=== PATIENT | male | born 1945 | race Caucasian/White ===

== ENCOUNTER → 2016-11-13 | Outpatient (REF) | payer MEDICARE, MEDICAID ==
[~2016-11-13] MED LIST: /INSU7030; /INSU7030 SC; /MOM400 PO; /WARF25TA PO; ACET65TA OR; ACTO45TA OR; ASPI81TA83; ASPI81TA83 OR; COLA100C2; COLA100C2 OR; CORE25TA PO; FLEEENE4 PR; FLEET; FOLI1TAB OR; GEMF600T; GEMF600T OR; GLUC1000; GLUC1000 OR; INSULANT SC; INSULIN 70/30 SC; LEVO750T PO; LISI10TA4; LISI10TA4 OR; LORTTAB5 PO; MAALSUS OR; MAG400TA PO; MIDO25TA PO; MILKSUS OR; MIRA3350 PO; NICO21DI4 TD; NICO21PAT TOP; NOVO70VL SC; NYAM10003 TOP; SENN8.6T5 OR; SIMV20TA2; SIMV20TA2 OR; SYNT50TA PO; TAMS0.4C PO; TYLE325T5 PO; VITA100T OR
== END ==
LOC: SKLAB5 08:38
PROVIDERS: ATTEND Family Medicine
DX: E11.9 Type 2 diabetes mellitus without complications (principal)

== ENCOUNTER → 2017-01-08 | Outpatient (REF) | payer MEDICARE, MEDICAID | LOC: SKLAB5 07:09 | PROVIDERS: ATTEND Family Medicine | DX: E78.5 Hyperlipidemia, unspecified (principal) ==

== ENCOUNTER → 2017-01-29 | Outpatient (REF) | payer MEDICARE, MEDICAID ==
[2017-01-29 13:23] LABS: MEAN CORPUSCULAR HEMOGLOBIN 26.7 pg (27.0-33.0); MEAN CORPUSCULAR HGB CONC 31.4 g/dl (32.0-36.5); MEAN CORPUSCULAR VOLUME 85.1 fl (80.0-96.0); PLATELET COUNT, AUTOMATED 316 k/mm3 (150-450); RED CELL DISTRIBUTION WIDTH 16.2 % (11.5-14.5); WHITE BLOOD COUNT 16.1 K/mm3 (4.0-10.0)
[2017-01-29 13:30] LABS: ALBUMIN 2.5 GM/DL (3.2-5.2); ALBUMIN/GLOBULIN RATIO 0.58 (1.00-1.93); ALKALINE PHOSPHATASE 89 U/L (45-117); ALT/SGPT 11 U/L (12-78); ANION GAP 6 MEQ/L (8-16); AST/SGOT 12 U/L (15-37); BILIRUBIN,TOTAL 0.5 MG/DL (0.2-1.0); BLOOD UREA NITROGEN 24 MG/DL (7-18); CALCIUM LEVEL 8.5 MG/DL (8.8-10.2); CARBON DIOXIDE LEVEL 36 MEQ/L (21-32); CHLORIDE LEVEL 96 MEQ/L (98-107); CREATININE FOR GFR 1.22 MG/DL (0.70-1.30); GLOMERULAR FILTRATION RATE > 60.0 (>42); GLUCOSE, FASTING 235 MG/DL (83-110); POTASSIUM SERUM 3.9 MEQ/L (3.5-5.1); SODIUM LEVEL 138 MEQ/L (136-145); TOTAL PROTEIN 6.8 GM/DL (6.4-8.2)
[2017-01-29 14:32] LABS: ANISOCYTOSIS 1+
--- NOTE | 2017-01-30 15:20 | REP ---
Clinical: Febrile and chest pain. Comparison: 04/12/2014. Findings: Bilateral lower lobe infiltrates and pleural effusions (right greater than left). Stable mild cardiomegaly. No pneumothorax. Skeletal structures intact. Impression: Bibasilar infiltrates and pleural effusions (right greater than left). Differential diagnosis includes multifocal pneumonia and pulmonary vascular congestion. Signed by Liborio Bustillo MD 01/30/2017 03:12 P
== END ==
LOC: SKLAB5 12:08
PROVIDERS: ATTEND Family Medicine
DX: R50.9 Fever, unspecified (principal); R11.2 Nausea with vomiting, unspecified; J90 Pleural effusion, not elsewhere classified; J98.4 Other disorders of lung

== ENCOUNTER → 2017-01-30 | Outpatient (REF) | payer MEDICARE, MEDICAID ==
[2017-01-30 08:25] LABS: BASO % 0.3 % (0.0-1.0); EOS # 0.2 K/mm3 (0.0-0.50); EOS % 1.4 % (0.0-3.0); LARGE UNSTAINED CELL # 0.2 K/mm3 (0.0-0.4); LARGE UNSTAINED CELL % 1.3 % (0.0-4.0); LYMPH # 0.8 K/mm3 (1.5-4.5); LYMPH % 3.9 % (24.0-44.0); MEAN CORPUSCULAR HEMOGLOBIN 26.4 pg (27.0-33.0); MEAN CORPUSCULAR HGB CONC 30.9 g/dl (32.0-36.5); MEAN CORPUSCULAR VOLUME 85.3 fl (80.0-96.0); MONO # 0.8 K/mm3 (0.0-0.8); MONO % 5.7 % (0.0-5.0); NEUTROPHILS # 12.7 K/mm3 (1.8-7.7); NEUTROPHILS % 87.3 % (36.0-66.0); PLATELET COUNT, AUTOMATED 323 k/mm3 (150-450); RED CELL DISTRIBUTION WIDTH 16.2 % (11.5-14.5); WHITE BLOOD COUNT 14.5 K/mm3 (4.0-10.0)
== END ==
LOC: SKLAB5 00:15
PROVIDERS: ATTEND Family Medicine
DX: R50.9 Fever, unspecified (principal)

== ENCOUNTER → 2017-02-02 | Outpatient (REF) | payer MEDICARE, MEDICAID ==
[2017-02-02 08:13] LABS: ANION GAP 8 MEQ/L (8-16); BLOOD UREA NITROGEN 15 MG/DL (7-18); CALCIUM LEVEL 8.3 MG/DL (8.8-10.2); CARBON DIOXIDE LEVEL 32 MEQ/L (21-32); CHLORIDE LEVEL 99 MEQ/L (98-107); CREATININE FOR GFR 1.05 MG/DL (0.70-1.30); GLOMERULAR FILTRATION RATE > 60.0 (>42); GLUCOSE, FASTING 172 MG/DL (83-110); POTASSIUM SERUM 3.8 MEQ/L (3.5-5.1); SODIUM LEVEL 139 MEQ/L (136-145)
[2017-02-02 09:01] LABS: BASO # 0.1 K/mm3 (0.0-0.2); BASO % 0.8 % (0.0-1.0); EOS # 0.3 K/mm3 (0.0-0.50); EOS % 3.2 % (0.0-3.0); LARGE UNSTAINED CELL # 0.2 K/mm3 (0.0-0.4); LARGE UNSTAINED CELL % 2.4 % (0.0-4.0); LYMPH # 0.5 K/mm3 (1.5-4.5); LYMPH % 5.5 % (24.0-44.0); MEAN CORPUSCULAR HEMOGLOBIN 26.7 pg (27.0-33.0); MEAN CORPUSCULAR HGB CONC 31.8 g/dl (32.0-36.5); MONO # 0.6 K/mm3 (0.0-0.8); MONO % 7.5 % (0.0-5.0); NEUTROPHILS # 6.9 K/mm3 (1.8-7.7); NEUTROPHILS % 80.6 % (36.0-66.0); PLATELET COUNT, AUTOMATED 346 k/mm3 (150-450); RED CELL DISTRIBUTION WIDTH 16.2 % (11.5-14.5); WHITE BLOOD COUNT 8.5 K/mm3 (4.0-10.0)
== END ==
LOC: SKLAB5 06:42
PROVIDERS: ATTEND Family Medicine
DX: I50.9 Heart failure, unspecified (principal)

== ENCOUNTER → 2017-02-10 | Outpatient (REF) | payer MEDICARE, MEDICAID ==
[2017-02-10 08:47] LABS: ALBUMIN 2.6 GM/DL (3.2-5.2); ALKALINE PHOSPHATASE 91 U/L (45-117); ALT/SGPT 14 U/L (12-78); ANION GAP 8 MEQ/L (8-16); AST/SGOT 13 U/L (15-37); BILIRUBIN,TOTAL 0.3 MG/DL (0.2-1.0); BLOOD UREA NITROGEN 14 MG/DL (7-18); CALCIUM LEVEL 8.2 MG/DL (8.8-10.2); CARBON DIOXIDE LEVEL 32 MEQ/L (21-32); CHLORIDE LEVEL 97 MEQ/L (98-107); CREATININE FOR GFR 1.06 MG/DL (0.70-1.30); GLOMERULAR FILTRATION RATE > 60.0 (>42); GLUCOSE, FASTING 129 MG/DL (83-110); POTASSIUM SERUM 3.8 MEQ/L (3.5-5.1); SODIUM LEVEL 137 MEQ/L (136-145); TOTAL PROTEIN 6.9 GM/DL (6.4-8.2)
[2017-02-10 08:53] LABS: VITAMIN B12 LEVEL 1075 PG/ML (247-911)
== END ==
LOC: SKLAB5 09:07
PROVIDERS: ATTEND Family Medicine
DX: E11.9 Type 2 diabetes mellitus without complications (principal); E03.9 Hypothyroidism, unspecified; D51.9 Vitamin B12 deficiency anemia, unspecified

== ENCOUNTER → 2017-05-14 | Outpatient (REF) | payer MEDICARE, MEDICAID | LOC: SKLAB5 08:17 | PROVIDERS: ATTEND Family Medicine | DX: E11.9 Type 2 diabetes mellitus without complications (principal) ==

== ENCOUNTER → 2017-07-16 | Outpatient (REF) | payer MEDICARE, MEDICAID ==
[2017-07-16 09:28] LABS: ALBUMIN 2.7 GM/DL (3.2-5.2); ALBUMIN/GLOBULIN RATIO 0.56 (1.00-1.93); ALKALINE PHOSPHATASE 90 U/L (45-117); ALT/SGPT 13 U/L (12-78); ANION GAP 9 MEQ/L (8-16); AST/SGOT 9 U/L (15-37); BILIRUBIN,TOTAL 0.3 MG/DL (0.2-1.0); BLOOD UREA NITROGEN 16 MG/DL (7-18); CALCIUM LEVEL 8.5 MG/DL (8.8-10.2); CARBON DIOXIDE LEVEL 31 MEQ/L (21-32); CHLORIDE LEVEL 102 MEQ/L (98-107); CHOLESTEROL LEVEL 132 MG/DL (<200); CREATININE FOR GFR 0.81 MG/DL (0.70-1.30); GLOMERULAR FILTRATION RATE > 60.0 (>42); GLUCOSE, FASTING 96 MG/DL (83-110); POTASSIUM SERUM 3.6 MEQ/L (3.5-5.1); SODIUM LEVEL 142 MEQ/L (136-145); TOTAL PROTEIN 7.5 GM/DL (6.4-8.2); TRIGLYCERIDES LEVEL 69 MG/DL (<150)
[2017-07-16 09:39] LABS: VITAMIN B12 LEVEL 634 PG/ML (247-911)
== END ==
LOC: SKLAB5 07:28
PROVIDERS: ATTEND Family Medicine
DX: I50.9 Heart failure, unspecified (principal); E03.9 Hypothyroidism, unspecified; E78.5 Hyperlipidemia, unspecified

== ENCOUNTER → 2017-08-13 | Outpatient (REF) | payer MEDICARE, MEDICAID | LOC: SKLAB5 08:41 | PROVIDERS: ATTEND Family Medicine | DX: E11.9 Type 2 diabetes mellitus without complications (principal) ==

== ENCOUNTER → 2017-09-28 | Outpatient (REF) | payer MEDICARE, MEDICAID ==
--- NOTE | 2017-09-28 10:37 | REP ---
MANDIBLE SERIES: Three views of the mandible are performed. There is no evidence of acute fracture or dislocation. There is no evidence of osseous destruction. IMPRESSION: No fracture or bone lesion. Signed by Maurice Blum MD 09/28/2017 11:00 A
== END ==
LOC: SKLAB5 07:46
PROVIDERS: ATTEND Family Medicine
DX: K02.9 Dental caries, unspecified (principal)

== ENCOUNTER → 2017-11-12 | Outpatient (REF) | payer MEDICARE, MEDICAID ==
[2017-11-12 10:49] LABS: ESTIMATED AVERAGE GLUCOSE 166 MG/DL (60-110); HEMOGLOBIN A1c 7.4 %
== END ==
LOC: SKLAB5 07:46
DX: E11.9 Type 2 diabetes mellitus without complications (principal)
CPT/HCPCS: 83036

== ENCOUNTER → 2018-01-07 | Outpatient (REF) | payer MEDICARE, MEDICAID ==
[2018-01-07 08:34] LABS: ALBUMIN 2.9 GM/DL (3.2-5.2); ALBUMIN/GLOBULIN RATIO 0.73 (1.00-1.93); ALKALINE PHOSPHATASE 92 U/L (45-117); ALT/SGPT 10 U/L (12-78); ANION GAP 5 MEQ/L (8-16); AST/SGOT 11 U/L (7-37); BILIRUBIN,TOTAL 0.3 MG/DL (0.2-1.0); BLOOD UREA NITROGEN 20 MG/DL (7-18); CALCIUM LEVEL 8.4 MG/DL (8.8-10.2); CARBON DIOXIDE LEVEL 34 MEQ/L (21-32); CHLORIDE LEVEL 100 MEQ/L (98-107); CHOLESTEROL LEVEL 129 MG/DL (<200); CHOLESTEROL RISK RATIO 2.866 (<5); CREATININE FOR GFR 1.02 MG/DL (0.70-1.30); GLOMERULAR FILTRATION RATE > 60.0 (>42); GLUCOSE, FASTING 107 MG/DL (70-100); HDL CHOLESTEROL 45 MG/DL (>40); LDL CHOLESTEROL 68.4 MG/DL (<100); NON-HDL-C 84 MG/DL; POTASSIUM SERUM 4.4 MEQ/L (3.5-5.1); SODIUM LEVEL 139 MEQ/L (136-145); TOTAL PROTEIN 6.9 GM/DL (6.4-8.2); TRIGLYCERIDES LEVEL 78 MG/DL (<150)
[2018-01-07 09:46] LABS: VITAMIN B12 LEVEL 414 PG/ML (247-911)
== END ==
LOC: SKLAB5 07:21
DX: I10 Essential (primary) hypertension (principal); E03.9 Hypothyroidism, unspecified; E78.5 Hyperlipidemia, unspecified
CPT/HCPCS: 84443

== ENCOUNTER → 2018-02-11 | Outpatient (REF) | payer MEDICARE, MEDICAID ==
[2018-02-11 10:51] LABS: ESTIMATED AVERAGE GLUCOSE 157 MG/DL (60-110); HEMOGLOBIN A1c 7.1 %
== END ==
LOC: SKLAB5 07:26
DX: E11.9 Type 2 diabetes mellitus without complications (principal)
CPT/HCPCS: 83036

== ENCOUNTER → 2018-05-13 | Outpatient (REF) | payer MEDICARE, MEDICAID ==
[2018-05-13 09:41] LABS: ESTIMATED AVERAGE GLUCOSE 169 MG/DL (60-110); HEMOGLOBIN A1c 7.5 %
== END ==
LOC: SKLAB5 07:17
DX: E11.9 Type 2 diabetes mellitus without complications (principal)
CPT/HCPCS: 83036

== ENCOUNTER → 2018-07-15 | Outpatient (REF) | payer MEDICARE, MEDICAID ==
[2018-07-15 09:37] LABS: ALBUMIN 2.9 GM/DL (3.2-5.2); ALBUMIN/GLOBULIN RATIO 0.64 (1.00-1.93); ALKALINE PHOSPHATASE 120 U/L (45-117); ALT/SGPT 13 U/L (12-78); ANION GAP 10 MEQ/L (8-16); AST/SGOT 12 U/L (7-37); BILIRUBIN,TOTAL 0.3 MG/DL (0.2-1.0); BLOOD UREA NITROGEN 19 MG/DL (7-18); CALCIUM LEVEL 8.2 MG/DL (8.8-10.2); CARBON DIOXIDE LEVEL 30 MEQ/L (21-32); CHLORIDE LEVEL 100 MEQ/L (98-107); CHOLESTEROL LEVEL 146 MG/DL (<200); CHOLESTEROL RISK RATIO 2.862 (<5); CREATININE FOR GFR 0.93 MG/DL (0.70-1.30); GLOMERULAR FILTRATION RATE > 60.0 (>42); GLUCOSE, FASTING 124 MG/DL (70-100); HDL CHOLESTEROL 51 MG/DL (>40); NON-HDL-C 95 MG/DL; POTASSIUM SERUM 4.1 MEQ/L (3.5-5.1); SODIUM LEVEL 140 MEQ/L (136-145); TOTAL PROTEIN 7.4 GM/DL (6.4-8.2); TRIGLYCERIDES LEVEL 110 MG/DL (<150)
[2018-07-15 13:02] LABS: VITAMIN B12 LEVEL 547 PG/ML (247-911)
== END ==
LOC: SKLAB5 09:37
DX: I50.9 Heart failure, unspecified (principal); E03.9 Hypothyroidism, unspecified; I11.0 Hypertensive heart disease with heart failure
CPT/HCPCS: 84443

== ENCOUNTER → 2018-08-12 | Outpatient (REF) | payer MEDICARE, MEDICAID ==
[2018-08-12 10:21] LABS: ESTIMATED AVERAGE GLUCOSE 180 MG/DL (60-110); HEMOGLOBIN A1c 7.9 %
== END ==
LOC: SKLAB5 08:10
DX: E11.9 Type 2 diabetes mellitus without complications (principal)
CPT/HCPCS: 83036

== ENCOUNTER → 2018-11-11 | Outpatient (REF) | payer MEDICARE, MEDICAID ==
[2018-11-11 08:58] LABS: HEMOGLOBIN A1c 9.3 %
== END ==
LOC: SKLAB5 07:59
PROVIDERS: ATTEND Family Medicine
DX: E11.9 Type 2 diabetes mellitus without complications (principal)

== ENCOUNTER → 2018-12-03 | Outpatient (REF) | payer MEDICARE, MEDICAID ==
[2018-12-03 12:12] LABS: HEMATOCRIT 45.9 % (42.0-52.0); HEMOGLOBIN 14.4 g/dl (13.5-17.5); MEAN CORPUSCULAR HGB CONC 31.4 g/dl (32.0-36.5); PLATELET COUNT, AUTOMATED 325 10^3/uL (150-450); RED BLOOD COUNT 5.53 10^6/uL (4.30-6.10); WHITE BLOOD COUNT 8.7 10^3/uL (4.0-10.0)
[2018-12-03 12:36] LABS: ALBUMIN 2.7 GM/DL (3.2-5.2); ALT/SGPT 10 U/L (12-78); BILIRUBIN,TOTAL 0.3 MG/DL (0.2-1.0); BLOOD UREA NITROGEN 24 MG/DL (7-18); CALCIUM LEVEL 8.5 MG/DL (8.8-10.2); CARBON DIOXIDE LEVEL 33 MEQ/L (21-32); CHLORIDE LEVEL 96 MEQ/L (98-107); CREATININE FOR GFR 1.08 MG/DL (0.70-1.30); GLOMERULAR FILTRATION RATE > 60.0 (>42); GLUCOSE, FASTING 384 MG/DL (70-100); POTASSIUM SERUM 4.6 MEQ/L (3.5-5.1); SODIUM LEVEL 136 MEQ/L (136-145); TOTAL PROTEIN 6.7 GM/DL (6.4-8.2)
--- NOTE | 2018-12-03 15:12 | REP ---
Chest one-view HISTORY: Bronchitis Comparison: 01/29/2017 Linear densities are present in the right lower lobe consistent with atelectasis or scar. The left lung is clear. There is blunting of the costophrenic angles due to pleural thickening or small pleural effusions. The cardiac silhouette is enlarged. The pulmonary vasculature is normal in appearance. A cardiac pacemaker is present. Impression: 1. Right lower lobe atelectasis or scar. 2. There is blunting of the costophrenic angles due to pleural thickening or small pleural effusions. 3. Cardiomegaly. Electronically Signed by Gelacio Bar MD 12/03/2018 12:09 P
== END ==
LOC: SKLAB5 07:54
PROVIDERS: ATTEND Family Medicine
DX: E11.9 Type 2 diabetes mellitus without complications (principal); J20.9 Acute bronchitis, unspecified; R05 Cough; I95.9 Hypotension, unspecified; R09.81 Nasal congestion; I51.7 Cardiomegaly

== ENCOUNTER → 2019-01-13 | Outpatient (REF) | payer MEDICARE, MEDICAID ==
[2019-01-13 10:50] LABS: ALBUMIN 2.7 GM/DL (3.2-5.2); ALT/SGPT 10 U/L (12-78); BILIRUBIN,TOTAL 0.4 MG/DL (0.2-1.0); BLOOD UREA NITROGEN 23 MG/DL (7-18); CALCIUM LEVEL 8.3 MG/DL (8.8-10.2); CARBON DIOXIDE LEVEL 28 MEQ/L (21-32); CHLORIDE LEVEL 102 MEQ/L (98-107); CHOLESTEROL LEVEL 135 MG/DL (<200); CREATININE FOR GFR 1.03 MG/DL (0.70-1.30); GLOMERULAR FILTRATION RATE > 60.0 (>42); GLUCOSE, FASTING 214 MG/DL (70-100); HDL CHOLESTEROL 45 MG/DL (>40); LDL CHOLESTEROL 64 MG/DL (<100); NON-HDL-C 90 MG/DL; POTASSIUM SERUM 4.3 MEQ/L (3.5-5.1); SODIUM LEVEL 140 MEQ/L (136-145); TOTAL PROTEIN 6.8 GM/DL (6.4-8.2); TRIGLYCERIDES LEVEL 131 MG/DL (<150)
[2019-01-13 12:07] LABS: VITAMIN B12 LEVEL 945 PG/ML (247-911)
== END ==
LOC: SKLAB5 07:55
PROVIDERS: ATTEND Family Medicine
DX: E78.5 Hyperlipidemia, unspecified (principal); E03.9 Hypothyroidism, unspecified

== ENCOUNTER → 2019-02-10 | Outpatient (REF) | payer MEDICARE, MEDICAID ==
[~2019-02-10] MED LIST changes: -/INSU7030; -/INSU7030 SC; -/MOM400 PO; -/WARF25TA PO; +COUM1TAB18 PO; -MIDO25TA PO; +MILK10SU PO; +NICO21DI3 TOP; -NICO21PAT TOP; +NOVO1INJ4; +NOVO1INJ4 SC; +[UNRECOGNIZED DRUG - CODE] PO
[2019-02-10 09:26] LABS: HEMOGLOBIN A1c 8.8 %
== END ==
LOC: SKLAB5 07:57
PROVIDERS: ATTEND Family Medicine
DX: E11.9 Type 2 diabetes mellitus without complications (principal)

== ENCOUNTER → 2019-05-13 | Outpatient (REF) | payer MEDICARE, MEDICAID ==
[2019-05-13 08:21] LABS: HEMOGLOBIN A1c 8.9 %
== END ==
LOC: SKLAB5 12:02
PROVIDERS: ATTEND Family Medicine
DX: E11.9 Type 2 diabetes mellitus without complications (principal)

== ENCOUNTER → 2019-07-14 | Outpatient (REF) | payer MEDICARE, MEDICAID ==
[~2019-07-14] MED LIST changes: +ALB2.5NEB INH; +APAP325T4 EN; +ARTIDRO OU; +ASPI81CH33 PO; +BAYE325T12 EN; +CARV6.25 EN; +CEPA1LOZ2 PO; +CLAR10CA3 EN; +CLAR5TAB11 PO; +DULC10SU2 PR; +ENEMENE6 PR; +FEVE650S3 PR; +FLOM0.4C39 EN; +GLUC1KIT IM; +HYOS1TAB PO; +INSUDET SC; +INSUH10VL SC; +LASI20TA3 PO; +LASI40TA9 EN; +LEVS0.123 PO; +METF-839 EN; +MOM30SS2 EN; +MUCI600T31 PO; +MULTCAP EN; +NOVOINJ SC; +SENN1TAB41 PO; +SENN1TAB8 PO; +SENN8.8S5 EN; +SIMV40TA20 EN; +SYNT125T EN
[2019-07-14 09:10] LABS: ALBUMIN 2.7 GM/DL (3.2-5.2); ALT/SGPT 12 U/L (12-78); BILIRUBIN,TOTAL 0.3 MG/DL (0.2-1.0); BLOOD UREA NITROGEN 23 MG/DL (7-18); CALCIUM LEVEL 8.6 MG/DL (8.8-10.2); CARBON DIOXIDE LEVEL 31 MEQ/L (21-32); CHLORIDE LEVEL 103 MEQ/L (98-107); CHOLESTEROL LEVEL 120 MG/DL (<200); CHOLESTEROL RISK RATIO 2.608 (<5); CREATININE FOR GFR 0.86 MG/DL (0.70-1.30); GLOMERULAR FILTRATION RATE > 60.0 (>42); GLUCOSE, FASTING 112 MG/DL (70-100); HDL CHOLESTEROL 46 MG/DL (>40); LDL CHOLESTEROL 50 MG/DL (<100); NON-HDL-C 74 MG/DL; POTASSIUM SERUM 4.2 MEQ/L (3.5-5.1); SODIUM LEVEL 140 MEQ/L (136-145); TOTAL PROTEIN 6.9 GM/DL (6.4-8.2); TRIGLYCERIDES LEVEL 119 MG/DL (<150); VITAMIN B12 LEVEL 1093 PG/ML (247-911)
== END ==
LOC: SKLAB5 10:21
PROVIDERS: ATTEND Family Medicine
DX: E03.9 Hypothyroidism, unspecified (principal); E78.5 Hyperlipidemia, unspecified

== ENCOUNTER → 2019-08-11 | Outpatient (REF) | payer MEDICARE, MEDICAID ==
[2019-08-11 08:47] LABS: HEMOGLOBIN A1c 7.9 %
== END ==
LOC: SKLAB5 08:21
PROVIDERS: ATTEND Family Medicine
DX: E11.9 Type 2 diabetes mellitus without complications (principal)

== ENCOUNTER 2019-10-08 21:22 | Inpatient (IN) | payer MEDICARE, MEDICAID ==
[~2019-10-08] VITALS: Ht 188 cm; Wt 98.7 kg
[~2019-10-08 21:22] MED LIST changes: -ALB2.5NEB INH; -APAP325T4 EN; -ARTIDRO OU; -ASPI81CH33 PO; -BAYE325T12 EN; -CARV6.25 EN; -CEPA1LOZ2 PO; -CLAR10CA3 EN; -CLAR5TAB11 PO; -DULC10SU2 PR; -ENEMENE6 PR; -FEVE650S3 PR; -FLOM0.4C39 EN; -GLUC1KIT IM; -HYOS1TAB PO; -INSUDET SC; -INSUH10VL SC; -LASI20TA3 PO; -LASI40TA9 EN; -LEVS0.123 PO; -METF-839 EN; -MOM30SS2 EN; -MUCI600T31 PO; -MULTCAP EN; -NOVOINJ SC; -SENN1TAB41 PO; -SENN1TAB8 PO; -SENN8.8S5 EN; -SIMV40TA20 EN; -SYNT125T EN
[2019-10-08] MEDS ORDERED: NS 1,000 ML IV SCH (21:26)
[2019-10-08] MEDS ORDERED: ASPIRIN 81 MG CHEW TABLET PO ONE (21:30)
[2019-10-08] MEDS: IPRATROPIUM 0.5MG/ALBUTEROL 2.5MG INH SOL UD 3ML (DUONEB)(J7620) NEB PRN (21:43)
[2019-10-08 22:17] LABS: BASO # 0.1 10^3/uL (0.0-0.2); BASO % 0.5 % (0.0-1.0); EOS # 0.1 10^3/uL (0.0-0.5); EOS % 0.5 % (0.0-3.0); HEMOGLOBIN 15.8 g/dl (13.5-17.5); LYMPH # 0.5 10^3/uL (1.5-5.0); LYMPH % 4.3 % (24.0-44.0); MEAN CORPUSCULAR HGB CONC 29.3 g/dl (32.0-36.5); MEAN CORPUSCULAR VOLUME 78.6 fl (80.0-96.0); MONO # 0.4 10^3/uL (0.0-0.8); MONO % 3.5 % (0.0-5.0); NEUTROPHILS # 10.9 10^3/uL (1.5-8.5); NEUTROPHILS % 90.9 % (36.0-66.0); PLATELET COUNT, AUTOMATED 401 10^3/uL (150-450); RED BLOOD COUNT 6.87 10^6/uL (4.30-6.10)
[2019-10-08 22:29] LABS: INR 1.15; PROTHROMBIN TIME 14.5 SECONDS (11.8-14.0)
[2019-10-08] MEDS ORDERED: FUROSEMIDE 40 MG/4 ML VIAL (J1940) IV ONE (22:45)
[2019-10-08] MEDS ORDERED: CLAR5TAB11 PO (23:08)
[2019-10-08] MEDS ORDERED: SENN1TAB8 PO (23:08)
[2019-10-08] MEDS ORDERED: LEVS0.123 PO (23:08)
[2019-10-08] MEDS ORDERED: MUCI600T31 PO (23:08)
[2019-10-08] MEDS ORDERED: LASI20TA3 PO (23:08)
[2019-10-08] MEDS ORDERED: ASPI81CH33 PO (23:08)
[2019-10-08 23:26] LABS: BLOOD UREA NITROGEN 25 MG/DL (7-18); CALCIUM LEVEL 8.7 MG/DL (8.8-10.2); CARBON DIOXIDE LEVEL 31 MEQ/L (21-32); CHLORIDE LEVEL 104 MEQ/L (98-107); CK-MB VALUE MASS 1.4 NG/ML (<3.6); CPK CREATINE PHOSPHOKINASE 76 U/L (39-308); CREATININE FOR GFR 0.92 MG/DL (0.70-1.30); GLOMERULAR FILTRATION RATE > 60.0 (>42); GLUCOSE, FASTING 108 MG/DL (70-100); MB/CK RELATIVE INDEX 1.84 (< OR =4); NT-PRO BNP 971 PG/ML (<125); POTASSIUM SERUM 3.8 MEQ/L (3.5-5.1); SODIUM LEVEL 142 MEQ/L (136-145); TROPONIN I < 0.02 NG/ML (< 0.10)
[2019-10-09] VITALS (12 sets, daily range): BP systolic 100–172; BP diastolic 56–85
[2019-10-09] MEDS ORDERED: ACETAMINOPHEN TAB 650MG DOSE (2X325MG) PO PRN (00:15)
[2019-10-09] MEDS ORDERED: IPRATROPIUM 0.5MG/ALBUTEROL 2.5MG INH SOL UD 3ML (DUONEB)(J7620) INH PRN (00:15)
[2019-10-09 00:28] LABS: C REACTIVE PROTEIN QUANTITATIV 3.38 MG/DL (0.00-0.30)
[2019-10-09] MEDS ORDERED: FEVE650S3 PR (00:53)
[2019-10-09] MEDS ORDERED: SENN1TAB41 PO (00:53)
[2019-10-09] MEDS ORDERED: GLUC1KIT IM (00:53)
[2019-10-09] MEDS ORDERED: MIRA3350 PO (00:53)
[2019-10-09] MEDS ORDERED: METF-839 PO (00:53)
[2019-10-09] MEDS ORDERED: FLOM0.4C39 PO (00:53)
[2019-10-09] MEDS ORDERED: HYOS1TAB PO (00:53)
[2019-10-09] MEDS ORDERED: CEPA1LOZ2 PO (00:53)
[2019-10-09] MEDS ORDERED: NOVO70VL SC (00:53)
[2019-10-09] MEDS ORDERED: ENEMENE6 PR (00:53)
[2019-10-09] MEDS ORDERED: CARV6.25 PO (00:53)
[2019-10-09] MEDS ORDERED: SIMV40TA20 PO (00:53)
[2019-10-09] MEDS ORDERED: MOM30SS2 PO (00:53)
[2019-10-09] MEDS ORDERED: SYNT125T PO (00:53)
[2019-10-09] MEDS ORDERED: DULC10SU2 PR (00:53)
[2019-10-09] MEDS ORDERED: MUCI600T31 PO (00:53)
[2019-10-09] MEDS ORDERED: ALB2.5NEB INH (00:53)
[2019-10-09] MEDS ORDERED: APAP325T4 PO (00:53)
[2019-10-09] MEDS ORDERED: ARTIDRO OU (00:53)
[2019-10-09] MEDS ORDERED: CLAR10CA3 PO (00:53)
[2019-10-09] MEDS ORDERED: LASI40TA9 PO (00:53)
[2019-10-09] MEDS ORDERED: BAYE325T12 PO (00:53)
[2019-10-09] MEDS ORDERED: MOM 30ML SUSPENSION UDC PO PRN (01:45)
[2019-10-09] MEDS ORDERED: GLUCOSE 4 GM CHEW TABLET PO PRN (02:00)
[2019-10-09] MEDS ORDERED: CEPACOL LOZENGE PO PRN (02:00)
[2019-10-09] MEDS ORDERED: BISACODYL 10 MG SUPP PR PRN (02:00)
[2019-10-09] MEDS ORDERED: DEXTROSE 50% 50 ML SYRINGE IV PRN (02:00)
[2019-10-09] MEDS ORDERED: GLUCAGON FOR INJ 1 MG VIAL (J1610) SC PRN (02:00)
--- NOTE | 2019-10-09 02:41 | HPEPDOC ---
General Date of Admission Oct 08, 2019 at 23:54 Date of Service: Oct 09, 2019 Attending Physician: EJ ALCANTARA MD Chief Complaint The patient is a 74-year-old male admitted with a reason for visit of Chf Exacerbation; Fever. History of Present Illness 74-year-old male resident at [facility] with extensive past medical history brought in for shortness of breath. He is a poor historian. Per staff reports, he was eating dinner, seemingly choked on food and then vomited. Afterwards, was found to be hypoxic at 87%, brought in on CPAP in the ambulance, however he vomited again on the CPAP, therefore transitioned over to nonrebreather, and ultimately titrated down to nasal cannula. He reports a cough with mild clear phlegm for the past 1 day along with difficulty breathing, which he is not able to further clarify. Denies all other ROS. No recent fevers, chil ls, rashes, chest pain or discomfort, wheezing, nausea/vomiting/abdominal pain, dysuria. In the ER, he was noted to have a temp of 100.5, WBC 12, and initially reportedly wheezing. Was given 1 L normal saline, full dose aspirin, DuoNeb, Lasix 40, and 10 mg Decadron. Official chest x-ray read is pending, however noted to have cardiomegaly and increased pulmonary vasculature markings. He was examined again when settled into his room on the medical floor, and states he feels much better, afebrile without any intervention, but noted to still require 5L NC. Home Medications Scheduled Aspirin (Aspirin) 325 Mg Tablet, 325 MG PO DAILY, (Reported) Carvedilol (Carvedilol) 6.25 Mg Tablet, 6.25 MG PO BID, (Reported) Furosemide (Lasix) 40 Mg Tablet, 40 MG PO BID, (Reported) 0800 AND 1400 Glucagon,Human Recombinant (Glucagon Emergency Kit) 1 Mg Vial, 1 MG IM ASDIRECTED, (Reported) Guaifenesin (Mucinex) 600 Mg Tab.er.12h, 600 MG PO BID, (Reported) Hyoscyamine Sulfate (Hyoscyamine Sulfate) 0.125 Mg Tab.rapdis, 0.125 MG PO Q8H, (Reported) Insulin Aspart Protamine/Aspar (Novolog Mix 70-30 Vial) 100 Unit/1 Ml Vial, 18 UNITS SC BID, (Reported) 0730 AND 1730 Levothyroxine Sodium (Synthroid) 125 Mcg Tablet, 125 MCG PO DAILY, (Reported) 0600 Loratadine (Claritin) 10 Mg Capsule, 10 MG PO DAILY, (Reported) Metformin HCl (Metformin HCl) 500 Mg Tablet, 500 MG PO BID, (Reported) 0800 AND 1600 Polyethylene Glycol 3350 (Miralax) 119 Gm Powder, 17 GRAM PO DAILY for constipation, (Reported) dissolve in water Sennosides/Docusate Sodium (Senna-S Tablet) 1 Each Tablet, 2 TAB PO BID, (Reported) Simvastatin (Simvastatin) 40 Mg Tablet, 40 MG PO QHS, (Reported) Tamsulosin HCl (Flomax) 0.4 Mg Capsule, 0.4 MG PO DAILY, (Reported) Scheduled PRN Acetaminophen (Feverall) 650 Mg Supp.rect, 650 MG OH Q4H PRN for PAIN / FEVER, (Reported) Acetaminophen (Acetaminophen) 325 Mg Tablet, 650 MG PO Q4H PRN for PAIN / FEVER, (Reported) Albuterol Sulfate (Albuterol Sulfate) 2.5 Mg/0.5 Ml Vial.neb, 1 INH INH Q4H PRN for SHORTNESS OF BREATH, (Reported) Benzocaine/Menthol (Cepacol Sore Throat Lozenge) 1 Each Lozenge, 1 NAEEM PO Q2H PRN for COUGH, (Reported) Bisacodyl (Dulcolax) 10 Mg Supp.rect, 10 MG OH DAILY PRN for CONSTIPATION, (Reported) Glycerin/Propylene Glycol (Artificial Tears Drops) 15 Ml Drops, 1 GEETHA OU TID PRN for DRY EYES, (Reported) Magnesium Hydroxide (Milk of Magnesia) 400 Mg/5 Ml Oral.susp, 30 ML PO DAILY PRN for CONSTIPATION, (Reported) Sodium Phosphate,Chase-Dibasic (Enema Ready To Use) 133 Ml Enema, 1 GEOFF OH DAILY PRN for CONSTIPATION, (Reported) Allergies Coded Allergies: No Known Drug Allergies (Verified Allergy, Unknown, 10/08/19) Past Medical History Medical History 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 Calabrese & Dr. Degroot Family History Father had heart disease Social History Resident him keep [facility] Prior smoker, unable to clarify how much when he quit Denies alcohol and illicit substances A-FIB/CHADSVASC A-FIB History Current/History of A-Fib/PAF?: No Current PO Anticoag Therapy: No Review of Systems Other systems Constitutional: Denies fever, chills, night sweats, weight loss HEENT: Denies headache, dysphagia, sore throat, rhinorrhea Skin: Denies any rashes or lesions Pulmonary: Admits dyspnea with minimal clear phlegm, cough, wheezing. No hemoptysis Cardiac: Denies chest pain, palpitations, orthopnea, PND, edema, lightheadedness GI: Denies nausea, vomiting, abdominal pain, diarrhea, constipation, melena, hematochezia : Denies dysuria, retention MSK: Denies new pains or weakness Neurologic: Denies new numbness/tingling Physical Examination Other physical findings General exam: A&O 2, to self and location, thinks it is year 2019, NAD, resting comfortably, speaking full sentences HEENT: NCAT, EOMI, PERRLA, clear oropharynx without exudates, edentulous roof, poor dentition inferiorly, uvula & trachea midline, no postnasal drip, mild cervical adenopathy, no appreciable JVD Cardiac: RRR, normal S1 & S2, PPM left upper chest Respiratory: poor inspiratory effort due to baseline cognition, bibasilar crackles, diminished breath sounds, no wheezing or accessory muscle use or respiratory distress. Mild cyanosis in all limbs distally Abdomen: soft, NT, ND, normoactive bowel sounds Extremity: diminished pulses throughout in UE & LE, slightly better on right side of body, trace LE edema, no calf tenderness or swelling Skin: [place], warm, dry, no visible rash Msk: strength 4/5 RUE & RLE from prior stroke, 5/5 left side, normal tone & development director strength Neuro: mumbled speech-this is reportedly his baseline, decreased sensation all limbs, unable to localize soft and sharp touch in all extremities. Sensation present above the knees. Residual weakness right side of body Vital Signs Vital Signs Date Time Temp Pulse Resp B/P (MAP) Pulse Ox O2 Delivery O2 Flow Rate FiO2 10/08/19 22:02 Non-Rebreather 15.0 10/08/19 21:33 100.5 132 36 168/92 (117) 87 Laboratory Data Labs 24H Laboratory Tests 2 10/08/19 21:29: Bedside Glucose (Misc Panel) 116H 10/08/19 21:44: POC pH (Misc Panel) 7.428, POC Base Excess (Misc Panel) 6.0H, POC Saturated Percent O2 (Misc) 91L, POC pO2 (Misc Panel) 60.0L, POC pCO2 (Misc Panel) 46.2H, POC HCO3 (Misc Panel) 30.5H, POC Total CO2 (Misc Panel) 32.0H 10/08/19 21:49: Immature Granulocyte % (Auto) 0.3, Neutrophils (%) (Auto) 90.9H, Lymphocytes (%) (Auto) 4.3L, Monocytes (%) (Auto) 3.5, Eosinophils (%) (Auto) 0.5, Basophils (%) (Auto) 0.5, Neutrophils # (Auto) 10.9H, Lymphocytes # (Auto) 0.5L, Monocytes # (Auto) 0.4, Eosinophils # (Auto) 0.1, Basophils # (Auto) 0.1, Nucleated Red Blood Cells % (auto) 0.0, Prothrombin Time 14.5H, Prothromb Time International Ratio 1.15 10/08/19 22:01: Lactic Acid Level 1.8 10/08/19 22:48: Anion Gap 7L, Glomerular Filtration Rate > 60.0, Calcium Level 8.7L, Total Cre atine Kinase 76, Creatine Kinase MB 1.4, Creatine Kinase MB Relative Index 1.84, Troponin I < 0.02, C-Reactive Protein, Quantitative 3.38H, UM-Nto-B-Type Natriuretic Peptide 971H 10/09/19 00:48: Bedside Glucose (Misc Panel) 93 10/09/19 00:50: CBC/BMP Laboratory Tests 10/08/19 21:49 10/08/19 22:48 Microbiology Microbiology 10/08/19 Blood Culture, Received Pending 10/08/19 Respiratory Virus Panel (PCR) (EMANUEL) - Final, Complete 10/08/19 Blood Culture, Received Pending Assessment/Plan 74-year-old male, poor historian resident of the [facility], brought in for dyspnea and hypoxia after vomiting from choking at dinner, noted to be in the high-80% O2. Transitioned from CPAP to NRB to nasal cannula. Noted to have temp 100.5 that self-resolved on recheck. Concern for possible aspiration Acute hypoxemia no O2 at baseline, requiring 5L NC aspiration pneumonitis vs pneumonia - desat started after choking on dinner had recent swallow eval recommending mechanical soft diet Afebrile, lactate & resp panel nml, but pt high risk if this is indeed PNA, CURB-65 = 3pts pending procal, blood cxs, atypical PNA, & MRSA screen testing incentive spirometry, Zosyn started. De-escalate pending results aspiration precautions in place Fluid overload from CHF prior echo 2013 nml, unclear if systolic or diastolic new echo ordered elevated BNP ~900, bibasilar crackles, no edema or JVD. Likely not in full decompensated state yet given 40mg Lasix in ER, monitor. Resume home po lasix strict I/O, daily weights, 2L fluid restriction Leukocytosis 12 on admission, s/p 10mg decadron & Duonebs may be reactionary. CRP & Procal ordered clinical picture is questionable for true infection given high risk, will start abx and monitor consider chest CT if no improvement CVA with residual spastic right hemiparesis Continue aspirin statin PVD with hx of ulcers followed by Dr. Degroot monitor cool extremities. No signs of necrosis IDDM2 with diabetic neuropathy Replace home insulin and metformin with ISS inpatient 3rd degree block, s/p DCPM Hypertensive heart disease Continue home Corag Hyperlipidemia Continue home statin BPH Continue home Flomax Vitamin D & B12 deficiency not on meds Hypothyroidism TSH normal 07/2019. Continue Synthroid DVT ppx: Lovenox CODE: per his [facility] records, MOLST states FULL CODE with trial of intubation, NO feeding tube. DISPO: admit to medical floor and d/c back to [facility] when improved. Plan / VTE VTE Prophylaxis Ordered?: Yes GME ATTESTATION GME ATTESTATION My faculty preceptor for this patient encounter was physically present during the encounter and was fully available. All aspects of the patient interview, examination, medical decision making process, and medical care plan development were reviewed and approved by the faculty preceptor. The faculty preceptor is aware and concurs with the plan as stated in the body of this note and will attest to such by his/her cosignature. ISABELA ESTRADA DO Oct 09, 2019 02:40
[2019-10-09] MEDS: IPRATROPIUM 0.5MG/ALBUTEROL 2.5MG INH SOL UD 3ML (DUONEB)(J7620) NEB PRN (04:32)
[2019-10-09] MEDS: IPRATROPIUM 0.5MG/ALBUTEROL 2.5MG INH SOL UD 3ML (DUONEB)(J7620) INH SCH ×4 (04:32→19:40)
[2019-10-09 05:12] LABS: HEMATOCRIT 47.8 % (42.0-52.0); HEMOGLOBIN 14.3 g/dl (13.5-17.5); MEAN CORPUSCULAR HEMOGLOBIN 23.3 pg (27.0-33.0); MEAN CORPUSCULAR HGB CONC 29.9 g/dl (32.0-36.5); PLATELET COUNT, AUTOMATED 366 10^3/uL (150-450); RED BLOOD COUNT 6.13 10^6/uL (4.30-6.10); WHITE BLOOD COUNT 26.8 10^3/uL (4.0-10.0)
[2019-10-09 05:39] LABS: BLOOD UREA NITROGEN 28 MG/DL (7-18); CALCIUM LEVEL 8.6 MG/DL (8.8-10.2); CARBON DIOXIDE LEVEL 32 MEQ/L (21-32); CHLORIDE LEVEL 105 MEQ/L (98-107); CK-MB VALUE MASS < 1.0 NG/ML (<3.6); CPK CREATINE PHOSPHOKINASE 60 U/L (39-308); CREATININE FOR GFR 0.99 MG/DL (0.70-1.30); GLOMERULAR FILTRATION RATE > 60.0 (>42); GLUCOSE, FASTING 127 MG/DL (70-100); MAGNESIUM LEVEL 1.9 MG/DL (1.8-2.4); MB/CK RELATIVE INDEX 1.67 (< OR =4); POTASSIUM SERUM 3.8 MEQ/L (3.5-5.1); SODIUM LEVEL 145 MEQ/L (136-145); TROPONIN I < 0.02 NG/ML (< 0.10)
[2019-10-09] MEDS: HYOSCYAMINE SULFATE 0.125 MG SUBL TABLET PO SCH ×3 (06:17→21:10)
[2019-10-09] MEDS: LEVOTHYROXINE 125MCG TABLET (0.125MG) PO SCH (06:17)
[2019-10-09] MEDS: PIPERACILLIN/TAZOBACTAM SOD 4.5 GM in D5W MINI-BAG PLUS 50 ML IV SCH ×3 (06:22→17:49)
--- NOTE | 2019-10-09 06:29 | REP ---
Clinical: Cough and dyspnea. Comparison: 12/03/2018. Findings: Stable cardiomegaly. Perihilar and lower lobe infiltrates are nonspecific and differential diagnosis includes pulmonary edema as well as multifocal pneumonia. No pneumothorax. Small layering effusion cannot be excluded. Skeletal structures are stable. Impression: Perihilar and lower lobe infiltrates. Differential diagnosis includes pulmonary edema and multifocal pneumonia. Electronically Signed by Liborio Bustillo MD 10/09/2019 06:20 A
[2019-10-09] MEDS: HumaLOG INSULIN (NovoLOG) PER UNIT SC SCH ×4 (07:30→20:42)
--- NOTE | 2019-10-09 07:54 | ECGEPIP ---
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
[2019-10-09] MEDS ORDERED: FUROSEMIDE 40 MG/4 ML VIAL (J1940) IV SCH (09:00)
[2019-10-09] MEDS ORDERED: LEVEMIR (INSULIN DETEMIR) 1 UNITS/0.01ML SC SCH (09:00)
[2019-10-09] MEDS: MIRALAX *UNIT DOSE* 17GM PACKET PO SCH (09:54)
[2019-10-09] MEDS: FUROSEMIDE 40 MG TAB PO SCH ×2 (09:55→17:00)
[2019-10-09] MEDS: guaiFENesin ER 600 MG TAB PO SCH ×2 (09:55→21:10)
[2019-10-09] MEDS: CARVedilol 6.25 MG TAB PO SCH ×2 (09:55→21:11)
[2019-10-09] MEDS: ASPIRIN 325 MG TAB PO SCH (09:55)
[2019-10-09] MEDS: SENOKOT S TAB PO SCH ×2 (09:55→21:11)
[2019-10-09] MEDS: ENOXAPARIN 40 MG/0.4 ML SYRINGE (J1650) SC SCH (09:55)
[2019-10-09] MEDS: TAMSULOSIN 0.4 MG CAP PO SCH (09:55)
[2019-10-09] MEDS: LORATADINE 10 MG TAB PO SCH (09:56)
--- NOTE | 2019-10-09 11:39 | IPNPDOC ---
Text Note Date of Service The patient was seen on 10/09/19. NOTE Subjective: No any acute events overnight. Patient was able to brief w/o diff iculties, currently on room air. Patient denies fever, chills, nausea, vomiting, shortness of breath, diarrhea or dysuria Objective: NAD HEENT: NCAT, EOMI, PERRLA Cardiac: RRR, S1 & S2, PPM left upper chest Respiratory: diminished breath sounds bilaterally Abdomen: soft, NT, ND Extremity: trace LE edema, no calf tenderness or swelling Msk: strength 4/5 RUE & RLE from prior stroke, 5/5 left side, normal tone & visual and stock associate strength Neuro: residual weakness right side of body, cranial nerves from 2-12 intact Assessment and plan 74-year-old male, poor historian resident of the [facility], with past medical history of CVA with residual weakness of the right side of the body, IDDM2 with diabetic neuropathy, 3rd degree block, hypertensive heart disease, Hyperlipidemia, congestive heart failure, developed acute hypoxemic respiratory failure secondary to possible aspiration. Received treatment with CPAP, he was found to have aspiration pneumonia versus aspiration pneumonitis. Acute hypoxemia Most likely secondary to aspiration due to previous CVA Resolved Patient is able to brief on the room air Appreciate/agree with speech therapy evaluation Nothing by mouth except meds for now Aspiration pneumonia Patient was febrile on admission, developed acute hypoxemic respiratory failure secondary to aspiration Chest x-ray showed perihilar and lower lobe infiltrates. Differential diagnosis includes pulmonary edema and multifocal pneumonia. Continue Zosyn Aspiration precaution CHF Most likely diastolic according to previous echo which was done in 2013 elevated BNP ~900 on the admission, bibasilar crackles. Developed a good urine output given 40mg Lasix in ER, continue po Lasix I's and O's VS,Fishbone, I+O VS, Fishbone, I+O Laboratory Tests 10/08/19 21:49 10/08/19 22:48 10/09/19 04:46 Vital Signs Date Time Temp Pulse Resp B/P (MAP) Pulse Ox O2 Delivery O2 Flow Rate FiO2 10/09/19 09:55 92 133/58 10/09/19 06:00 22 91 Room Air 10/09/19 04:00 98.9 10/09/19 03:00 1.0 I&O- Last 24 Hours up to 6 AM 10/09/19 06:00 Intake Total 100 ml Balance 100 ml AMY SIMON DO Oct 09, 2019 11:39
[2019-10-09] MEDS: NS 1,000 ML IV SCH (11:55)
[2019-10-09 12:02] LABS: CK-MB VALUE MASS 1.1 NG/ML (<3.6); CPK CREATINE PHOSPHOKINASE 58 U/L (39-308); TROPONIN I < 0.02 NG/ML (< 0.10)
[2019-10-09 12:12] LABS: BLOOD UREA NITROGEN 31 MG/DL (7-18); CALCIUM LEVEL 8.6 MG/DL (8.8-10.2); CARBON DIOXIDE LEVEL 30 MEQ/L (21-32); CHLORIDE LEVEL 102 MEQ/L (98-107); CREATININE FOR GFR 1.13 MG/DL (0.70-1.30); GLOMERULAR FILTRATION RATE > 60.0 (>42); GLUCOSE, FASTING 234 MG/DL (70-100); POTASSIUM SERUM 3.9 MEQ/L (3.5-5.1); SODIUM LEVEL 140 MEQ/L (136-145)
[2019-10-09] MEDS ORDERED: ONDANSETRON 4MG/2ML VIAL (J2405) IV PRN (14:30)
[2019-10-09 18:24] LABS: BLOOD UREA NITROGEN 29 MG/DL (7-18); CALCIUM LEVEL 7.9 MG/DL (8.8-10.2); CARBON DIOXIDE LEVEL 29 MEQ/L (21-32); CHLORIDE LEVEL 107 MEQ/L (98-107); CREATININE FOR GFR 1.06 MG/DL (0.70-1.30); GLOMERULAR FILTRATION RATE > 60.0 (>42); GLUCOSE, FASTING 206 MG/DL (70-100); POTASSIUM SERUM 3.5 MEQ/L (3.5-5.1); SODIUM LEVEL 144 MEQ/L (136-145)
[2019-10-09] MEDS: SIMVASTATIN 40 MG TAB PO SCH (21:10)
[2019-10-09] MEDS: LEVEMIR (INSULIN DETEMIR) 1 UNITS/0.01ML SC SCH (21:10)
[2019-10-09] MEDS: OMEPRAZOLE 20 MG CAP PO SCH (21:10)
[2019-10-09 23:59] LABS: BLOOD UREA NITROGEN 30 MG/DL (7-18); CARBON DIOXIDE LEVEL 28 MEQ/L (21-32); CHLORIDE LEVEL 106 MEQ/L (98-107); CREATININE FOR GFR 1.01 MG/DL (0.70-1.30); GLOMERULAR FILTRATION RATE > 60.0 (>42); GLUCOSE, FASTING 237 MG/DL (70-100); POTASSIUM SERUM 3.6 MEQ/L (3.5-5.1); SODIUM LEVEL 143 MEQ/L (136-145)
[2019-10-10] MEDS: PIPERACILLIN/TAZOBACTAM SOD 4.5 GM in D5W MINI-BAG PLUS 50 ML IV SCH ×5 (00:02→23:48)
[2019-10-10] MEDS: IPRATROPIUM 0.5MG/ALBUTEROL 2.5MG INH SOL UD 3ML (DUONEB)(J7620) INH SCH ×4 (01:30→19:38)
[2019-10-10] MEDS: NS 1,000 ML IV SCH ×2 (04:09→14:40)
[2019-10-10] MEDS: LEVOTHYROXINE 125MCG TABLET (0.125MG) PO SCH (05:55)
[2019-10-10] MEDS: HYOSCYAMINE SULFATE 0.125 MG SUBL TABLET PO SCH ×3 (05:55→21:12)
[2019-10-10 06:00] VITALS: BP 151/67
[2019-10-10 06:03] LABS: HEMATOCRIT 41.3 % (42.0-52.0); HEMOGLOBIN 12.4 g/dl (13.5-17.5); MEAN CORPUSCULAR HEMOGLOBIN 23.2 pg (27.0-33.0); MEAN CORPUSCULAR VOLUME 77.2 fl (80.0-96.0); PLATELET COUNT, AUTOMATED 328 10^3/uL (150-450); RED BLOOD COUNT 5.35 10^6/uL (4.30-6.10); WHITE BLOOD COUNT 15.4 10^3/uL (4.0-10.0)
[2019-10-10 06:29] LABS: BLOOD UREA NITROGEN 26 MG/DL (7-18); CALCIUM LEVEL 7.9 MG/DL (8.8-10.2); CARBON DIOXIDE LEVEL 31 MEQ/L (21-32); CHLORIDE LEVEL 109 MEQ/L (98-107); CREATININE FOR GFR 1.03 MG/DL (0.70-1.30); GLOMERULAR FILTRATION RATE > 60.0 (>42); GLUCOSE, FASTING 231 MG/DL (70-100); MAGNESIUM LEVEL 2.1 MG/DL (1.8-2.4); POTASSIUM SERUM 3.6 MEQ/L (3.5-5.1); SODIUM LEVEL 145 MEQ/L (136-145)
[2019-10-10] MEDS ORDERED: POTASSIUM CHLORIDE 10 MEQ SR TABLET PO ONE (07:30)
[2019-10-10 08:17] VITALS: BP 116/55
[2019-10-10] MEDS: LEVEMIR (INSULIN DETEMIR) 1 UNITS/0.01ML SC SCH ×2 (08:19→21:12)
[2019-10-10] MEDS: TAMSULOSIN 0.4 MG CAP PO SCH (08:20)
[2019-10-10] MEDS: HumaLOG INSULIN (NovoLOG) PER UNIT SC SCH ×4 (08:20→21:11)
[2019-10-10] MEDS: MIRALAX *UNIT DOSE* 17GM PACKET PO SCH (08:20)
[2019-10-10] MEDS: ASPIRIN 325 MG TAB PO SCH (08:21)
[2019-10-10] MEDS: SENOKOT S TAB PO SCH ×2 (08:21→21:13)
[2019-10-10] MEDS: OMEPRAZOLE 20 MG CAP PO SCH ×2 (08:21→21:25)
[2019-10-10] MEDS: LORATADINE 10 MG TAB PO SCH (08:22)
[2019-10-10] MEDS: CARVedilol 6.25 MG TAB PO SCH ×2 (08:22→21:13)
[2019-10-10] MEDS: FUROSEMIDE 40 MG TAB PO SCH ×2 (08:22→17:36)
[2019-10-10] MEDS: guaiFENesin ER 600 MG TAB PO SCH ×2 (08:22→21:13)
[2019-10-10] MEDS: ENOXAPARIN 40 MG/0.4 ML SYRINGE (J1650) SC SCH (08:23)
[2019-10-10] MEDS ORDERED: VARIBAR PUDDING 40% w/v 230ML TUBE As Ordered ONE (08:58)
[2019-10-10] MEDS ORDERED: VARIBAR NECTAR 40% w/v 240ML SUSP BTL As Ordered ONE (08:58)
[2019-10-10] MEDS ORDERED: E-Z-PAQUE 96% w/w SUSP 176GM BTL As Ordered ONE (08:59)
[2019-10-10] MEDS ORDERED: BARIUM SULFATE 700 MG TABLET (E-Z-DISK) As Ordered ONE (08:59)
[2019-10-10 14:00] VITALS: BP 117/63
[2019-10-10] MEDS ORDERED: LEVEMIR (INSULIN DETEMIR) 1 UNITS/0.01ML SC ONE (14:00)
--- NOTE | 2019-10-10 14:09 | IPNPDOC ---
Text Note Date of Service The patient was seen on 10/10/19. NOTE Subjective: No any acute events overnight. 20 V. tach beats overnight Patient denies fever, chills, nausea, vomiting, shortness of breath, diarrhea or dysuria Objective: NAD HEENT: NCAT, EOMI, PERRLA Cardiac: RRR, S1 & S2, PPM left upper chest Respiratory: diminished breath sounds bilaterally Abdomen: soft, NT, ND Extremity: trace LE edema, no calf tenderness or swelling Msk: strength 4/5 RUE & RLE from prior stroke, 5/5 left side, normal tone & rn tele strength Neuro: residual weakness right side of body, cranial nerves from 2-12 intact Assessment and plan 74-year-old male, poor historian resident of the [facility], with past medical history of CVA with residual weakness of the right side of the body, IDDM2 with diabetic neuropathy, 3rd degree block, hypertensive heart disease, Hyperlipidemia, congestive heart failure, developed acute hypoxemic respiratory failure secondary to possible aspiration. Received treatment with CPAP, he was found to have aspiration pneumonia versus aspiration pneumonitis. Acute hypoxemia Most likely secondary to aspiration due to previous CVA Resolved Patient is able to brief on the room air Appreciate/agree with speech therapy evaluation Aspiration pneumonia Patient was febrile on admission, developed acute hypoxemic respiratory failure secondary to aspiration Chest x-ray showed perihilar and lower lobe infiltrates. Differential diagnosis includes pulmonary edema and multifocal pneumonia. Continue Zosyn Aspiration precaution elevated BNP ~900 on the admission, bibasilar crackles. Developed a good urine output given 40mg Lasix in ER, continue po Lasix I's and O's CVA with residual spastic right hemiparesis Continue aspirin statin PVD with hx of ulcers followed by Dr. Degroot monitor cool extremities. No signs of necrosis IDDM2 with diabetic neuropathy ISS Detemir twice a day 3rd degree block, s/p DCPM Hypertensive heart disease Continue home Corag Hyperlipidemia Continue home statin BPH Continue home Flomax V. tach Round of 20 V. 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 Continue Synthroid Oropharyngeal dysfunction His diet was modified Aspiration precaution Psychosis Improved most likely secondary to steroids Patient is afebrile, looks nontoxic VS,Fishbone, I+O VS, Fishbone, I+O Laboratory Tests 10/09/19 17:53 10/09/19 23:34 10/10/19 05:30 Vital Signs Date Time Temp Pulse Resp B/P (MAP) Pulse Ox O2 Delivery O2 Flow Rate FiO2 10/10/19 08:22 83 116/55 10/10/19 07:45 2.0 10/10/19 06:00 97.7 20 95 Nasal Cannula I&O- Last 24 Hours up to 6 AM 10/10/19 06:00 Intake Total 697.5 ml Balance 697.5 ml AMY SIMON DO Oct 10, 2019 14:09
[2019-10-10 14:13] LABS: BLOOD UREA NITROGEN 24 MG/DL (7-18); CALCIUM LEVEL 8.2 MG/DL (8.8-10.2); CARBON DIOXIDE LEVEL 30 MEQ/L (21-32); CHLORIDE LEVEL 105 MEQ/L (98-107); CREATININE FOR GFR 1.19 MG/DL (0.70-1.30); GLOMERULAR FILTRATION RATE > 60.0 (>42); GLUCOSE, FASTING 327 MG/DL (70-100); POTASSIUM SERUM 4.6 MEQ/L (3.5-5.1); SODIUM LEVEL 143 MEQ/L (136-145)
--- NOTE | 2019-10-10 15:47 | ECGEPIP ---
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
--- NOTE | 2019-10-10 16:57 | REP ---
COOKIE SWALLOW The procedure was performed under the direct supervision of Dr. Blum. The procedure was performed with Karine Nova from speech pathology present. 5 ml aliquots of nectar, pudding, thin, honey and a barium pill were administered. With nectar and thin consistency barium there is laryngeal penetration. The detailed report of this examination will be provided by speech pathology. 1.8 minutes of fluoroscopy time was utilized for this procedure. Electronically Signed by COLLIN Hannon 10/10/2019 04:43 P Electronically Signed by Maurice Blum MD 10/10/2019 04:49 P
[2019-10-10 17:09] VITALS: BP 121/63
[2019-10-10 18:35] LABS: BLOOD UREA NITROGEN 22 MG/DL (7-18); CALCIUM LEVEL 8.3 MG/DL (8.8-10.2); CARBON DIOXIDE LEVEL 32 MEQ/L (21-32); CHLORIDE LEVEL 105 MEQ/L (98-107); CREATININE FOR GFR 1.16 MG/DL (0.70-1.30); GLOMERULAR FILTRATION RATE > 60.0 (>42); GLUCOSE, FASTING 260 MG/DL (70-100); SODIUM LEVEL 143 MEQ/L (136-145)
--- NOTE | 2019-10-10 19:13 | ECHO ---
DATE OF PROCEDURE: 10/10/2019 REFERRING PHYSICIAN: Karo Loo MD INDICATION: Abnormal ECG. Height 188 cm, weight 99 kg. DIMENSIONS: IVS: 1.1 LV: 5.6 LVPW: 1.1 LA: 3.9 Aorta: 2.8 RV: 2.8 Left atrial volume index: 23 Mitral E wave velocity: 105 E prime septal: 8.9 E prime lateral: 11.6 FINDINGS: The study is of very limited technical quality with difficult visualization. The patient is probably in atrial fibrillation with wide QRS complex either representing left bundle branch block or septal pacing. Left ventricle is normal size. There is overall probably normal or near normal left ventricular (LV) systolic function with very limited visualization. Right ventricle appears grossly normal size. There is an echo artifact in right-sided heart chambers consistent with pacemaker lead. The left atrium is normal size. Right atrium is probably normal size as well. Aortic valve is sclerotic but mobility is preserved. There are degenerative abnormalities of mitral valve with mitral annular calcifications but mobility of leaflets is preserved. Tricuspid and pulmonic valves were poorly visualized. No pericardial effusion is noted. Inferior vena cava was not seen. Aortic root is normal. Aortic arch and abdominal aorta were not seen. Doppler interrogation reveals no aortic stenosis or insufficiency. There is also no significant mitral stenosis or insufficiency. Same applies for tricuspid valve. Mitral inflow pattern and tissue Doppler imaging of mitral annulus is inconclusive for evaluation of diastolic function due to underlying atrial fibrillation. CONCLUSIONS: 1. Study is of poor technical quality. 2. Normal LV size with probably normal or near normal LV systolic function based on poor visualization. 3. Degenerative abnormalities of aortic and mitral valves but without significant functional consequence. 4. Unable to estimate central venous pressure and pulmonary artery pressure. COMMENT: Subacute bacterial endocarditis (SBE) prophylaxis is not recommended.
[2019-10-10] MEDS: SIMVASTATIN 40 MG TAB PO SCH (21:13)
[2019-10-10 22:00] VITALS: BP 110/44
[2019-10-11 00:31] LABS: BLOOD UREA NITROGEN 19 MG/DL (7-18); CARBON DIOXIDE LEVEL 29 MEQ/L (21-32); CHLORIDE LEVEL 107 MEQ/L (98-107); CREATININE FOR GFR 1.02 MG/DL (0.70-1.30); GLOMERULAR FILTRATION RATE > 60.0 (>42); GLUCOSE, FASTING 238 MG/DL (70-100); POTASSIUM SERUM 3.8 MEQ/L (3.5-5.1); SODIUM LEVEL 141 MEQ/L (136-145)
[2019-10-11] MEDS: IPRATROPIUM 0.5MG/ALBUTEROL 2.5MG INH SOL UD 3ML (DUONEB)(J7620) INH SCH ×4 (01:51→19:30)
[2019-10-11] MEDS: NS 1,000 ML IV SCH ×2 (04:00→17:36)
[2019-10-11] MEDS: PIPERACILLIN/TAZOBACTAM SOD 4.5 GM in D5W MINI-BAG PLUS 50 ML IV SCH ×3 (05:41→17:35)
[2019-10-11] MEDS: HYOSCYAMINE SULFATE 0.125 MG SUBL TABLET PO SCH ×3 (05:41→22:14)
[2019-10-11] MEDS: LEVOTHYROXINE 125MCG TABLET (0.125MG) PO SCH (05:41)
[2019-10-11 06:00] VITALS: BP 149/89
[2019-10-11 06:09] LABS: HEMATOCRIT 41.8 % (42.0-52.0); HEMOGLOBIN 12.1 g/dl (13.5-17.5); MEAN CORPUSCULAR HGB CONC 28.9 g/dl (32.0-36.5); MEAN CORPUSCULAR VOLUME 79.5 fl (80.0-96.0); PLATELET COUNT, AUTOMATED 329 10^3/uL (150-450); RED BLOOD COUNT 5.26 10^6/uL (4.30-6.10); WHITE BLOOD COUNT 9.9 10^3/uL (4.0-10.0)
[2019-10-11 06:27] LABS: BLOOD UREA NITROGEN 16 MG/DL (7-18); CALCIUM LEVEL 7.9 MG/DL (8.8-10.2); CARBON DIOXIDE LEVEL 30 MEQ/L (21-32); CHLORIDE LEVEL 108 MEQ/L (98-107); CREATININE FOR GFR 0.95 MG/DL (0.70-1.30); GLOMERULAR FILTRATION RATE > 60.0 (>42); GLUCOSE, FASTING 175 MG/DL (70-100); MAGNESIUM LEVEL 2.2 MG/DL (1.8-2.4); POTASSIUM SERUM 3.7 MEQ/L (3.5-5.1); SODIUM LEVEL 143 MEQ/L (136-145)
--- NOTE | 2019-10-11 07:29 | ECGEPIP ---
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
[2019-10-11] MEDS: MIRALAX *UNIT DOSE* 17GM PACKET PO SCH (09:46)
[2019-10-11] MEDS: ASPIRIN 325 MG TAB PO SCH (09:46)
[2019-10-11] MEDS: TAMSULOSIN 0.4 MG CAP PO SCH (09:47)
[2019-10-11] MEDS: CARVedilol 6.25 MG TAB PO SCH ×2 (09:47→22:12)
[2019-10-11] MEDS: guaiFENesin ER 600 MG TAB PO SCH ×2 (09:47→22:12)
[2019-10-11] MEDS: SENOKOT S TAB PO SCH ×2 (09:47→22:13)
[2019-10-11] MEDS: ENOXAPARIN 40 MG/0.4 ML SYRINGE (J1650) SC SCH (09:47)
[2019-10-11] MEDS: LORATADINE 10 MG TAB PO SCH (09:47)
[2019-10-11] MEDS: FUROSEMIDE 40 MG TAB PO SCH ×2 (09:47→17:36)
[2019-10-11] MEDS: OMEPRAZOLE 20 MG CAP PO SCH ×2 (09:47→22:12)
[2019-10-11] MEDS: LEVEMIR (INSULIN DETEMIR) 1 UNITS/0.01ML SC SCH ×2 (09:48→22:14)
[2019-10-11] MEDS: HumaLOG INSULIN (NovoLOG) PER UNIT SC SCH ×4 (09:48→22:13)
--- NOTE | 2019-10-11 12:00 | IPNPDOC ---
Text Note Date of Service The patient was seen on 10/11/19. NOTE Subjective: No any acute events overnight. 7 v tach beats overnight Patient denies fever, chills, nausea, vomiting, shortness of breath, diarrhea or dysuria Objective: NAD HEENT: NCAT, EOMI, PERRLA Cardiac: RRR, S1 & S2, PPM left upper chest Respiratory: diminished breath sounds bilaterally Abdomen: soft, NT, ND Extremity: trace LE edema, no calf tenderness or swelling Msk: strength 4/5 RUE & RLE from prior stroke, 5/5 left side, normal tone & earring maker strength Neuro: residual weakness right side of body, cranial nerves from 2-12 intact Assessment and plan 74-year-old male, poor historian resident of the 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 Received treatment with CPAP, he was found to have aspiration pneumonia versus aspiration pneumonitis. Acute hypoxemia Most likely secondary to aspiration due to previous CVA Resolved Patient is able to brief on the room air According to speech therapy evaluation patient has severe oropharyngeal dysfunction Diet was modified Aspiration pneumonia Patient was febrile on admission, developed acute hypoxemic respiratory failure secondary to aspiration Chest x-ray showed perihilar and lower lobe infiltrates. Differential diagnosis includes pulmonary edema and multifocal pneumonia. Continue Zosyn Aspiration precaution elevated BNP ~900 on the admission, bibasilar crackles. Developed a good urine output given 40mg Lasix in ER, continue po Lasix I's and O's CVA with residual spastic right hemiparesis Continue aspirin statin PVD with hx of ulcers followed by Dr. Degroot monitor cool extremities. No signs of necrosis IDDM2 with diabetic neuropathy ISS Detemir twice a day 3rd degree block, s/p DCPM Hypertensive heart disease Continue home Coreg Hyperlipidemia Continue home statin BPH Continue home Flomax V. tach Round of 20 V. tach beats yesterday, 7 V. tach beats today Echo result shows normal LV size with probably normal or near normal LV systolic function Appreciate/agree with retail loan originator consult Hypothyroidism TSH normal 07/2019. Continue Synthroid Oropharyngeal dysfunction His diet was modified Aspiration precaution Psychosis Improved most likely secondary to steroids Patient is afebrile, looks nontoxic VS,Fishbone, I+O VS, Fishbone, I+O Laboratory Tests 10/10/19 13:22 10/10/19 17:41 10/11/19 00:00 10/11/19 05:44 Vital Signs Date Time Temp Pulse Resp B/P (MAP) Pulse Ox O2 Delivery O2 Flow Rate FiO2 10/11/19 09:47 79 123/62 10/11/19 06:00 97.6 20 94 Room Air 10/10/19 14:00 2.0 I&O- Last 24 Hours up to 6 AM 10/11/19 06:00 Intake Total 2920 ml Output Total 0 ml Balance 2920 ml AMY SIMON DO Oct 11, 2019 12:00
[2019-10-11 14:00] VITALS: BP 127/62
--- NOTE | 2019-10-11 21:28 | CR ---
DATE OF CONSULTATION: 10/11/2019 REFERRING PHYSICIAN: Tristan Rivers MD INDICATION: Ventricular tachycardia. HISTORY OF PRESENT ILLNESS: I was asked by Dr. Rivers to see Mr. Saavedra. He is a patient of mine, so I am familiar with his past medical history. He was admitted to our facility with very likely aspiration pneumonia. He was in mild respiratory distress and was febrile. After some hydration and administration of steroids, he felt better; but last night, he was noted to have a run of nonsustained ventricular tachycardia. Consequently, I am being asked to see him. When I reviewed the telemetry tracing, it reveals that the patient is predominantly in sinus rhythm with very frequent ventricular pacing and he does have episodes of nonsustained VT. Besides the one mentioned by Dr. Rivers, he had another one the night before that was shorter lasting only 8 beats. Both episodes were asymptomatic. At bedside, the patient tells me that he is feeling much better. His prior dyspnea has resolved. He denies any chest pain or sensation of palpitations and he did not have any symptoms during the episode of nonsustained VT. His past cardiac history is positive for hypertensive heart disease. He was diagnosed with high degree AV block in 2013 and underwent placement of dual-chamber pacemaker. The interrogations of the device had been done on periodic basis and have identified chronic episodes of nonsustained VT dating back to 2015. We had discussion on this topic with the patient and his and we decided not to pursue any further evaluation. He had no other symptoms to suggest coronary artery disease and his quality of life is quite limited and would not be improved by coronary intervention. PAST MEDICAL HISTORY: 1. History of cerebrovascular accident (CVA) with residual right-sided hemiparesis. 2. History of high degree AV block, status post dual-chamber pacemaker placement in 2013. 3. Type 2 diabetes. 4. Hypertensive heart disease. 5. Dyslipidemia. 9. Benign prostatic hypertrophy (BPH). 10. Hypothyroidism. 11. Peripheral vascular disease. OUTPATIENT MEDICATIONS: - aspirin and 325 mg a day - Coreg 6.25 twice a day - furosemide 40 mg twice a day - glucagon as needed - insulin - levothyroxine 125 mcg is daily - Claritin 10 mg daily - metformin 500 twice a day - simvastatin 40 mg at night - tamsulosin 0.4 mg at night ALLERGIES: No known allergies. PAST SURGICAL HISTORY: 1. Dual-chamber pacemaker placement. 2. Right hip open reduction and internal fixation (ORIF). 3. Debridement of peripheral wounds. SOCIAL HISTORY: The patient is , but currently resides in a care home due to his neurologic debility post cerebrovascular accident (CVA). He does not smoke, but he used to smoke in distant past. There is no significant alcohol use. FAMILY HISTORY: No longer relevant, but is positive for coronary artery disease (CAD) in first-degree relatives. REVIEW OF SYSTEMS: Unfortunately, due to the patient's condition, somewhat limited; but he denies at bedside any recent chest pain, palpitations, syncope and near syncope. He does not have any dyspnea with his level of activity until current illness. PHYSICAL EXAMINATION: Mr. Saavedra is an elderly man who is seen at his bedside. He is sitting in a chair. He is alert and oriented x3, even though the date was difficult for him. Vital signs: Blood pressure 127/62, heart rate has been in the 70s and 80s predominantly sinus rhythm with ventricular pacing. He has been afebrile. Saturation 96% on room air. Weight today was not recorded, was 98.7 kg on admission. His jugular venous pulse (JVP) is not high. Lungs are reasonably clear on the right, on the left I hear occasional crackles, but no rhonchi, no wheezing. Heart: Exam somewhat muffled. Heart sounds regular rhythm. I do not appreciate a distinct murmur, gallop or rub. There is a pacemaker on left subclavian pocket. Abdomen is soft and nontender. Extremities: Have trace edema. There is fairly dense right-sided hemiparesis. Speech is minimally affected LABORATORY: Basic metabolic panel is normal, but for glucose 175, magnesium levels 2.2. Thyroid simulating hormone (TSH) on admission was 1.4 and N-terminal pro BNP on admission was 970. Complete blood count (CBC): WBC count 9.9, hemoglobin 12.1, hematocrit 41.8 and platelet count 329,000, INR is 1.1. His chest x-ray reveal mostly lower lobe infiltrates that are bilateral. I do not appreciate any distinct convincing evidence for congestive heart failure, even though it is in differential diagnosis. There is appropriate position of pacemaker leads and cardiomegaly. Numerous ECGs reveal ventricular pacing. An echocardiogram interpreted by myself performed yesterday was poor quality study, but reveals grossly preserved left ventricular systolic function and no hemodynamically significant valvular disease. This is consistent with prior outpatient testing. ASSESSMENT/PLAN: Mr. Saavedra is a 74-year-old man who is currently a care home resident after cerebrovascular accident that left him with severe right-sided hemiparesis. He also has difficulty with swallowing. During this hospitalization which very likely was caused by aspiration, he developed two episodes of nonsustained ventricular tachycardia that were asymptomatic. He does have preserved left ventricular systolic function and is already on beta-blockers. There were no significant electrolyte abnormalities. At this situation, I do not have much to add to his management. Based on his pacemaker interrogations, he has had episodes of nonsustained ventricular tachycardia since 2016. They were never prolonged and never symptomatic. He never had evaluation for underlying possible coronary artery disease due to his baseline disability and the belief that potentially intervention would not improve quality of his life. I do believe that the this premise has not changed and I would recommend to continue current management. His survival will very likely be determined by his propensity for aspiration. The pacemaker interrogation was last performed on September 29 and revealed no episodes of atrial fibrillation. I reviewed my echo report that looked to me that the patient was in atrial fibrillation at the time, but it probably was just frequent ectopy.
[2019-10-11 22:00] VITALS: BP 120/58
[2019-10-11] MEDS: SIMVASTATIN 40 MG TAB PO SCH (22:13)
[2019-10-12 00:15] VITALS: BP 127/65
[2019-10-12] MEDS: PIPERACILLIN/TAZOBACTAM SOD 4.5 GM in D5W MINI-BAG PLUS 50 ML IV SCH ×3 (00:36→12:00)
[2019-10-12] MEDS: IPRATROPIUM 0.5MG/ALBUTEROL 2.5MG INH SOL UD 3ML (DUONEB)(J7620) INH SCH ×2 (01:41→06:59)
[2019-10-12] MEDS: HYOSCYAMINE SULFATE 0.125 MG SUBL TABLET PO SCH (05:39)
[2019-10-12] MEDS: LEVOTHYROXINE 125MCG TABLET (0.125MG) PO SCH (05:39)
[2019-10-12 06:00] VITALS: BP 129/53
[2019-10-12 06:23] LABS: HEMATOCRIT 42.6 % (42.0-52.0); HEMOGLOBIN 12.5 g/dl (13.5-17.5); MEAN CORPUSCULAR HEMOGLOBIN 23.1 pg (27.0-33.0); MEAN CORPUSCULAR HGB CONC 29.3 g/dl (32.0-36.5); MEAN CORPUSCULAR VOLUME 78.7 fl (80.0-96.0); PLATELET COUNT, AUTOMATED 306 10^3/uL (150-450); RED BLOOD COUNT 5.41 10^6/uL (4.30-6.10); WHITE BLOOD COUNT 8.4 10^3/uL (4.0-10.0)
[2019-10-12 06:40] LABS: BLOOD UREA NITROGEN 13 MG/DL (7-18); CALCIUM LEVEL 8.2 MG/DL (8.8-10.2); CARBON DIOXIDE LEVEL 30 MEQ/L (21-32); CHLORIDE LEVEL 107 MEQ/L (98-107); CREATININE FOR GFR 0.92 MG/DL (0.70-1.30); GLOMERULAR FILTRATION RATE > 60.0 (>42); GLUCOSE, FASTING 171 MG/DL (70-100); POTASSIUM SERUM 3.7 MEQ/L (3.5-5.1); SODIUM LEVEL 143 MEQ/L (136-145)
[2019-10-12] MEDS: MIRALAX *UNIT DOSE* 17GM PACKET PO SCH (08:30)
[2019-10-12] MEDS: NS 1,000 ML IV SCH (08:30)
[2019-10-12] MEDS: HumaLOG INSULIN (NovoLOG) PER UNIT SC SCH ×2 (08:31→12:40)
[2019-10-12] MEDS: TAMSULOSIN 0.4 MG CAP PO SCH (08:32)
[2019-10-12] MEDS: OMEPRAZOLE 20 MG CAP PO SCH (08:32)
[2019-10-12] MEDS: guaiFENesin ER 600 MG TAB PO SCH (08:32)
[2019-10-12] MEDS: LORATADINE 10 MG TAB PO SCH (08:32)
[2019-10-12] MEDS: ASPIRIN 325 MG TAB PO SCH (08:32)
[2019-10-12] MEDS: FUROSEMIDE 40 MG TAB PO SCH (08:32)
[2019-10-12] MEDS: SENOKOT S TAB PO SCH (08:32)
[2019-10-12 08:33] VITALS: BP 152/94
[2019-10-12] MEDS: CARVedilol 6.25 MG TAB PO SCH (08:33)
[2019-10-12] MEDS: ENOXAPARIN 40 MG/0.4 ML SYRINGE (J1650) SC SCH (08:33)
[2019-10-12] MEDS ORDERED: LEVEMIR (INSULIN DETEMIR) 1 UNITS/0.01ML SC SCH (09:00)
--- NOTE | 2019-10-12 18:13 | DS.PDOC ---
Discharge Summary General Date of Admission Oct 08, 2019 at 23:54 Date of Discharge 10/12/19 Discharge Summary PROCEDURES PERFORMED DURING STAY: [None]. ADMITTING DIAGNOSES: Acute hypoxemia Aspiration pneumonia CVA PVD IDDM2 with diabetic neuropathy 3rd degree block Hypertensive heart disease BPH V. tach Hypothyroidism Oropharyngeal dysfunction Psychosis DISCHARGE DIAGNOSES: Acute hypoxemia Aspiration pneumonia CVA PVD IDDM2 with diabetic neuropathy 3rd degree block Hypertensive heart disease BPH V. tach Hypothyroidism Oropharyngeal dysfunction Psychosis COMPLICATIONS/CHIEF COMPLAINT: Chf Exacerbation; Fever. HISTORY OF PRESENT ILLNESS: 74-year-old male resident at [facility] [place] with extensive past medical history brought in for shortness of breath. He is a poor historian. Per staff reports, he was eating dinner, seemingly choked on food and then vomited. Afterwards, was found to be hypoxic at 87%, brought in on CPAP in the ambulance, however he vomited again on the CPAP, there fore transitioned over to nonrebreather, and ultimately titrated down to nasal cannula. He reports a cough with mild clear phlegm for the past 1 day along with difficulty breathing, which he is not able to further clarify. Denies all other ROS. No recent fevers, chills, rashes, chest pain or discomfort, wheezing, nausea/vomiting/abdominal pain, dysuria. In the ER, he was noted to have a temp of 100.5, WBC 12, and initially reportedly wheezing. Was given 1 L normal saline, full dose aspirin, DuoNeb, Lasix 40, and 10 mg Decadron. Official chest x-ray read is pending, however noted to have cardiomegaly and increased pulmonary vasculature markings. He was examined again when settled into his room on the medical floor, and states he feels much better, afebrile without any intervention, but noted to still require 5L NC. HOSPITAL COURSE: During hospital stay following issue addressed Patient developed Acute hypoxemia Most likely secondary to aspiration due to previous CVA Patient is able to brief on the room air According to speech therapy evaluation patient has severe oropharyngeal dysf unction Diet was modified Aspiration pneumonia Patient was febrile on admission, developed acute hypoxemic respiratory failure secondary to aspiration Chest x-ray showed perihilar and lower lobe infiltrates consistent with multifocal pneumonia. Patient received treatment with Zosyn Aspiration precaution CVA with residual spastic right hemiparesis Continue aspirin statin PVD with hx of ulcers followed by Dr. Degroot monitor cool extremities. No signs of necrosis IDDM2 with diabetic neuropathy ISS Detemir twice a day 3rd degree block, s/p DCPM Hypertensive heart disease Continue home Coreg Hyperlipidemia Continue home statin BPH Continue home Flomax V. tach Round of from to 7 to 20 V. tach beats overnights on telemetry Echo result shows normal LV size with probably normal or near normal LV systolic function Systems Analyst Engineer team recommended to continue beta blockers Hypothyroidism TSH normal 07/2019. Continue Synthroid Oropharyngeal dysfunction His diet was modified DISCHARGE MEDICATIONS: Please see below. ALLERGIES: Please see below. PHYSICAL EXAMINATION ON DISCHARGE: VITAL SIGNS: Please see below. HEENT: NCAT, EOMI, PERRLA Cardiac: RRR, S1 & S2, PPM left upper chest Respiratory: diminished breath sounds bilaterally Abdomen: soft, NT, ND Extremity: trace LE edema, no calf tenderness or swelling Msk: strength 4/5 RUE & RLE from prior stroke, 5/5 left side, normal tone & senior it security analyst strength Neuro: residual weakness right side of body, cranial nerves from 2-12 intact LABORATORY DATA: Please see below. IMAGING: [facility] NAME: BENNIE NOLEN DATE OF : 1945 AGE: 74 SEX: M REPORT #: [id number] ROOM: ICU TECHNOLOGIST: [facility] DOCTOR: BRADEN ALONZO SEPARATIONS SCIENTIST Ordered for Date&Time: 10/08/192125 cc: [~ rep ct ivnm] Service Date&Time: 10/08/192152 This report is in Signed status. If this report is in a DRAFT status it has not yet been reviewed by the radiologist for accuracy. Thank you for having your radiology procedures performed at [facility] RADIOLOGY REPORT Date&Time printed: [~ rep prt dt last] [~ rep prt tm last] Page [address] of [address] [address] RADIOLOGY REPORT This report is in Signed status. If this report is in a DRAFT status it has not yet been reviewed by the radiologist for accuracy. Thank you for having your radiology procedures performed at [facility] RADIOLOGY REPORT Date&Time printed: [~ rep prt dt last] [~ rep prt tm last] Page 1 of 1 Clinical: Cough and dyspnea. Comparison: 12/03/2018. Findings: Stable cardiomegaly. Perihilar and lower lobe infiltrates are nonspecific and differential diagnosis includes pulmonary edema as well as multifocal pneumonia. No pneumothorax. Small layering effusion cannot be excluded. Skeletal structures are stable. Impression: Perihilar and lower lobe infiltrates. Differential diagnosis includes pulmonary edema and multifocal pneumonia. Electronically Signed by Liborio Bustillo MD 10/09/2019 06:20 A DD: Liborio Bustillo MD 10/09/19618 DT: Franca 10/09/19619 DS: KAITLIN 10/09/1961910/09/19619 [~ rep ct labl] PROGNOSIS: Depends on resolution of oropharyngeal dysfunction ACTIVITY: As tolerated DIET: Cardiac DISPOSITION: [facility]. DISCHARGE INSTRUCTIONS: Aspiration precaution DISCHARGE CONDITION: [Stable]. TIME SPENT ON DISCHARGE: Greater than 20 minutes. Vital Signs/I&Os Vital Signs Date Time Temp Pulse Resp B/P (MAP) Pulse Ox O2 Delivery O2 Flow Rate FiO2 10/12/19 08:33 75 152/94 10/12/19 06:00 98.2 17 94 Room Air 10/10/19 14:00 2.0 I&O- Last 24 Hours up to 6 AM 10/12/19 06:00 Intake Total 2270 ml Output Total 0 ml Balance 2270 ml Laboratory Data Labs 24H Laboratory Tests 2 10/11/19 20:17: Bedside Glucose (Misc Panel) 242H 10/11/19 21:09: Bedside Glucose (Misc Panel) 238H 10/12/19 05:49: Nucleated Red Blood Cells % (auto) 0.0, Anion Gap 6L, Glomerular Filtration Rate > 60.0, Calcium Level 8.2L, Magnesium Level 2.0 10/12/19 11:23: Bedside Glucose (Misc Panel) 223H CBC/BMP Laboratory Tests 10/12/19 05:49 FSBS Laboratory Tests Test 10/11/19 20:17 10/11/19 21:09 10/12/19 11:23 Range/Units Bedside Glucose (Misc Panel) 242 238 223 83-110 MG/DL Microbiology Microbiology 10/08/19 Blood Culture - Preliminary, Resulted No Growth after 72 hours. All specime... 10/08/19 Respiratory Virus Panel (PCR) (EMANUEL) - Final, Complete 10/08/19 Blood Culture - Preliminary, Resulted No Growth after 72 hours. All specime... Discharge Medications Scheduled Aspirin (Aspirin) 325 Mg Tablet, 325 MG PO DAILY, (Reported) Carvedilol (Carvedilol) 6.25 Mg Tablet, 6.25 MG PO BID, (Reported) Furosemide (Lasix) 40 Mg Tablet, 40 MG PO BID, (Reported) 0800 AND 1400 Glucagon,Human Recombinant (Glucagon Emergency Kit) 1 Mg Vial, 1 MG IM ASDIRECTED, (Reported) Guaifenesin (Mucinex) 600 Mg Tab.er.12h, 600 MG PO BID, (Reported) Hyoscyamine Sulfate (Hyoscyamine Sulfate) 0.125 Mg Tab.rapdis, 0.125 MG PO Q8H, (Reported) Insulin Aspart Protamine/Aspar (Novolog Mix 70-30 Vial) 100 Unit/1 Ml Vial, 18 UNITS SC BID, (Reported) 0730 AND 1730 Levothyroxine Sodium (Synthroid) 125 Mcg Tablet, 125 MCG PO DAILY, (Reported) 0600 Loratadine (Claritin) 10 Mg Capsule, 10 MG PO DAILY, (Reported) Metformin HCl (Metformin HCl) 500 Mg Tablet, 500 MG PO BID, (Reported) 0800 AND 1600 Polyethylene Glycol 3350 (Miralax) 119 Gm Powder, 17 GRAM PO DAILY for constipation, (Reported) dissolve in water Sennosides/Docusate Sodium (Senna-S Tablet) 1 Each Tablet, 2 TAB PO BID, (Reported) Simvastatin (Simvastatin) 40 Mg Tablet, 40 MG PO QHS, (Reported) Tamsulosin HCl (Flomax) 0.4 Mg Capsule, 0.4 MG PO DAILY, (Reported) Scheduled PRN Acetaminophen (Feverall) 650 Mg Supp.rect, 650 MG AL Q4H PRN for PAIN / FEVER, (Reported) Acetaminophen (Acetaminophen) 325 Mg Tablet, 650 MG PO Q4H PRN for PAIN / FEVER, (Reported) Albuterol Sulfate (Albuterol Sulfate) 2.5 Mg/0.5 Ml Vial.neb, 1 INH INH Q4H PRN for SHORTNESS OF BREATH, (Reported) Benzocaine/Menthol (Cepacol Sore Throat Lozenge) 1 Each Lozenge, 1 NAEEM PO Q2H PRN for COUGH, (Reported) Bisacodyl (Dulcolax) 10 Mg Supp.rect, 10 MG AL DAILY PRN for CONSTIPATION, (Reported) Glycerin/Propylene Glycol (Artificial Tears Drops) 15 Ml Drops, 1 GEETHA OU TID PRN for DRY EYES, (Reported) Magnesium Hydroxide (Milk of Magnesia) 400 Mg/5 Ml Oral.susp, 30 ML PO DAILY PRN for CONSTIPATION, (Reported) Sodium Phosphate,[place]-Dibasic (Enema Ready To Use) 133 Ml Enema, 1 GEOFF AL DAILY PRN for CONSTIPATION, (Reported) Allergies Coded Allergies: No Known Drug Allergies (Verified Allergy, Unknown, 10/08/19) AMY SIMON DO Oct 12, 2019 18:13
== END 2019-10-12 13:22 | DRG 177 ==
LOC: M ED 21:22 → M ED INP 23:54 → M ICU 10-09 00:20 → M MSPAV 10-09 14:33
PROVIDERS: ADMIT Internal Medicine Nephrology; ATTEND Internal Medicine
DX: J69.0 Pneumonitis due to inhalation of food and vomit (principal); J96.01 Acute respiratory failure with hypoxia; I69.351 Hemiplegia and hemiparesis following cerebral infarction affecting right dominant side; I44.2 Atrioventricular block, complete; I50.32 Chronic diastolic (congestive) heart failure; I47.2 Ventricular tachycardia; D72.829 Elevated white blood cell count, unspecified; I69.391 Dysphagia following cerebral infarction; E11.51 Type 2 diabetes mellitus with diabetic peripheral angiopathy without gangrene; Z66 Do not resuscitate; R13.12 Dysphagia, oropharyngeal phase; E11.40 Type 2 diabetes mellitus with diabetic neuropathy, unspecified; I11.0 Hypertensive heart disease with heart failure; F29 Unspecified psychosis not due to a substance or known physiological condition; E78.5 Hyperlipidemia, unspecified; N40.0 Benign prostatic hyperplasia without lower urinary tract symptoms; E03.9 Hypothyroidism, unspecified; T38.0X5A Adverse effect of glucocorticoids and synthetic analogues, initial encounter; E55.9 Vitamin D deficiency, unspecified; E53.8 Deficiency of other specified B group vitamins; Z79.82 Long term (current) use of aspirin; Z79.899 Other long term (current) drug therapy; Z79.4 Long term (current) use of insulin; Z95.0 Presence of cardiac pacemaker; Z87.891 Personal history of nicotine dependence

== ENCOUNTER 2019-10-19 06:35 | Inpatient (IN) | payer MEDICARE, MEDICAID ==
[~2019-10-19] VITALS: Ht 175.3 cm; Wt 104.5 kg
[2019-10-19] VITALS (8 sets, daily range): BP systolic 90–129; BP diastolic 50–62
[~2019-10-19 06:35] MED LIST changes: +ALB2.5NEB INH; +APAP325T4 EN; +ARTIDRO OU; +ASPI81CH33 PO; +BAYE325T12 EN; +CARV6.25 EN; +CEPA1LOZ2 PO; +CLAR10CA3 EN; +CLAR5TAB11 PO; +DULC10SU2 PR; +ENEMENE6 PR; +FEVE650S3 PR; +FLOM0.4C39 EN; +GLUC1KIT IM; +HYOS1TAB PO; +LASI20TA3 PO; +LASI40TA9 EN; +LEVS0.123 PO; +METF-839 EN; +MOM30SS2 EN; +MUCI600T31 PO; +SENN1TAB41 PO; +SENN1TAB8 PO; +SIMV40TA20 EN; +SYNT125T EN
[2019-10-19] MEDS ORDERED: IPRATROPIUM 0.5MG/ALBUTEROL 2.5MG INH SOL UD 3ML (DUONEB)(J7620) NEB ONE (06:45)
[2019-10-19] MEDS ORDERED: PIPERACILLIN/TAZOBACTAM SOD 3.375 GM in D5W MINI-BAG PLUS 50 ML IV ONE (07:00)
[2019-10-19 07:23] LABS: BASO # 0.1 10^3/uL (0.0-0.2); BASO % 0.3 % (0.0-1.0); EOS % 0.1 % (0.0-3.0); HEMATOCRIT 45.3 % (42.0-52.0); HEMOGLOBIN 13.1 g/dl (13.5-17.5); LYMPH # 0.6 10^3/uL (1.5-5.0); LYMPH % 3.1 % (24.0-44.0); MEAN CORPUSCULAR HEMOGLOBIN 23.3 pg (27.0-33.0); MEAN CORPUSCULAR HGB CONC 28.9 g/dl (32.0-36.5); MEAN CORPUSCULAR VOLUME 80.5 fl (80.0-96.0); MONO # 0.5 10^3/uL (0.0-0.8); MONO % 2.5 % (0.0-5.0); NEUTROPHILS # 17.3 10^3/uL (1.5-8.5); NEUTROPHILS % 93.5 % (36.0-66.0); PLATELET COUNT, AUTOMATED 349 10^3/uL (150-450); RED BLOOD COUNT 5.63 10^6/uL (4.30-6.10); WHITE BLOOD COUNT 18.5 10^3/uL (4.0-10.0)
--- NOTE | 2019-10-19 07:27 | ECGEPIP ---
[facility] - ED Test Date: 2019-10-19 Pat Name: BENNIE NOLEN Department: Room: - Gender: Male Surgery Teacher: EMILY : 1945 Requested By: MICAH Vang Order Number: [id number] Reading MD: Beto Zurita Measurements Intervals [place] Rate: 119 P: 52 CT: 240 QRS: -78 QRSD: 170 T: 89 QT: 392 QTc: 552 Interpretive Statements ELECTRONIC VENTRICULAR PACEMAKER RATE CHANGE COMPARED TO 10/10/19 Electronically Signed on 10-19-2019 7:27:12 EST by Beto Zurita
[2019-10-19] MEDS ORDERED: ACETAMINOPHEN 650 MG SUPP PR ONE (07:45)
[2019-10-19 08:20] LABS: BLOOD UREA NITROGEN 17 MG/DL (7-18); CALCIUM LEVEL 5.7 MG/DL (8.8-10.2); CARBON DIOXIDE LEVEL 23 MEQ/L (21-32); CHLORIDE LEVEL 117 MEQ/L (98-107); CK-MB VALUE MASS 1.3 NG/ML (<3.6); CPK CREATINE PHOSPHOKINASE 68 U/L (39-308); GLOMERULAR FILTRATION RATE > 60.0 (>42); GLUCOSE, FASTING 194 MG/DL (70-100); MB/CK RELATIVE INDEX 1.91 (< OR =4); NT-PRO BNP 758 PG/ML (<125); POTASSIUM SERUM 3.1 MEQ/L (3.5-5.1); SODIUM LEVEL 147 MEQ/L (136-145); TROPONIN I < 0.02 NG/ML (< 0.10)
--- NOTE | 2019-10-19 08:45 | REP ---
Portable chest x-ray: Single view. History: Dyspnea and cough. Comparison chest x-ray: October 08, 2019. Findings: Monitoring electrodes are seen. A bipolar pacemaker is noted in the right heart via the left side as before. Heart is mildly enlarged as before. There is an air density overlying the heart along the left heart border. Hiatal hernia versus pneumopericardium. There is mild bilateral pleural thickening unchanged. Pulmonary vasculature is somewhat cephalized. Increased parenchymal markings are seen in the right perihilar region question pleural plaquing versus infiltrate. There is no evidence of ifeoma pulmonary edema. Impression: Mild cardiomegaly with pacemaker. The air density overlying the heart, hiatal hernia versus pneumopericardium. CT scanning of the chest would provide additional information. Increased density in the right perihilar region infiltrate versus pleural plaquing. Electronically Signed by Richard Barron MD 10/19/2019 05:36 P
[2019-10-19] MEDS ORDERED: CALCIUM GLUCONATE 1,000 MG in D5W MINI-BAG PLUS 100 ML IV ONE (09:00)
--- NOTE | 2019-10-19 09:24 | REP ---
CT STUDY OF THE CHEST WITHOUT CONTRAST: HISTORY: Question pneumopericardium. Comparison is made with today's portable chest x-ray. FINDINGS: There is no evidence of pneumopericardium or pneumomediastinum. There is a small sliding hiatal hernia. There is volume loss in the left lower lobe associated with a large area of rounded atelectasis. There is a similar also large area of rounded atelectasis in the right lower lobe. In the left lower lobe, this is felt to produce displacement and deformity of the major fissure, which on today's chest x-ray simulated pneumopericardium. There are bilateral alveolar infiltrates consistent with pneumonia most pronounced in the right upper lobe but also in some of the right middle lobe. There is a very small amount of pleural fluid bilaterally. IMPRESSION: Right middle lobe and right upper lobe pneumonia. Patchy infiltrate seen in the left upper lobe. Large areas of rounded atelectasis in the lower lobes bilaterally distort the major fissure and simulate the radiographic findings. There is no evidence of pneumomediastinum or pneumopericardium. Hiatal hernia is seen. Electronically Signed by Richard Barron MD 10/19/2019 05:37 P
--- NOTE | 2019-10-19 10:39 | HPEPDOC ---
[facility] Medical History & Physical Date of Admission Oct 19, 2019 Date of Service: Oct 19, 2019 History and Physical CHIEF COMPLAINT: hypoglycemia, vomiting HISTORY OF PRESENT ILLNESS: 74-year-old male resident at [facility] with extensive past medical history sent to ED after being found in vomit. Patient was found to be hypoglycemic earlier, and treated with orange juice. Patient aware of vomiting this morning, denies any other medical complaints. Denies chest pain, shortness of breath, abdominal pain, nausea, diarrhea. In ED found to be febrile, with imaging showing multifocal infiltrates, suspicious for aspiration. Patient recently discharged for respiratory distress secondary to decompensated CHF and aspiration PNA. Patient is oriented to person and place, poor historian. 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 Calabrese & Dr. Degroot ALLERGIES: Please see below. REVIEW OF SYSTEMS: Negative except as per HPI. HOME MEDICATIONS: Please see below. PHYSICAL EXAMINATION: VITAL SIGNS: See below GENERAL APPEARANCE: NAD, lying comfortably in bed HEENT: NC/AT, nasal cannula in place CARDIOVASCULAR: +S1S2, tachy LUNGS: scattered rhonchi ABDOMEN: soft, NT, +BS EXTREMITIES: no edema PSYCHIATRIC: oriented to person and place LABORATORY DATA: See below. MICROBIOLOGY: Please see below. ASSESSMENT: 74 yo male from [place] sent for hypoglycemia and vomiting, found to have multifocal pneumonia, with extensive PMHx including recent discharge for respiratory distress secondary to aspiration pneumonia. #multifocal pneumonia/sepsis - Zosyn/Vanco - SCx, BCx, MRSA screen pending - elevated lactic acid on admission - repeat pending - IV fluids #acute/chronic hypoxic respiratory failure - baseline appears to be 5L as per recent discharge #hypocalcemia - albumin pending - IV repletion in process #hypoglycemia #aspiration/dysphagia - NPO, swallow eval pending #CVA with residual spastic right hemiparesis #IDDM2 with diabetic neuropathy #3rd degree block, s/p dual chamber PPM #Hypertensive heart disease #HLD #CHF #BPH #Vitamin D deficiency/Vitamin B12 deficiency #Hypothyroidism #PVD #DVT prophylaxis Code status: MOLST appears to be full code Dispo: guarded prognosis, pending clinical improvement Vital Signs Vital Signs Date Time Temp Pulse Resp B/P (MAP) Pulse Ox O2 Delivery O2 Flow Rate FiO2 10/19/19 08:51 100.6 10/19/19 08:16 115 28 153/65 (94) 92 Nasal Cannula 6.0 Laboratory Data Labs 24H Laboratory Tests 2 10/19/19 06:53: Lactic Acid Level 2.9*H 10/19/19 06:54: Immature Granulocyte % (Auto) 0.5, Neutrophils (%) (Auto) 93.5H, Lymphocytes (%) (Auto) 3.1L, Monocytes (%) (Auto) 2.5, Eosinophils (%) (Auto) 0.1, Basophils (%) (Auto) 0.3, Neutrophils # (Auto) 17.3H, Lymphocytes # (Auto) 0.6L, Monocytes # (Auto) 0.5, Eosinophils # (Auto) 0.0, Basophils # (Auto) 0.1, Nucleated Red Blood Cells % (auto) 0.0, Anion Gap 7L, Glomerular Filtration Rate > 60.0, Calcium Level 5.7*L, Total Creatine Kinase 68, Creatine Kinase MB 1.3, Creatine Kinase MB Relative Index 1.91, Troponin I < 0.02, UV-Vrq-Z-Type Natriuretic Peptide 758H 10/19/19 07:03: POC pH (Misc Panel) 7.453H, POC Base Excess (Misc Panel) 3.0, POC Saturated Percent O2 (Misc) 85L, POC pO2 (Misc Panel) 47.0*L, POC pCO2 (Misc Panel) 39.1, POC HCO3 (Misc Panel) 27.4H, POC Total CO2 (Misc Panel) 29.0H CBC/BMP Laboratory Tests 10/19/19 06:54 Microbiology Microbiology 10/19/19 Respiratory Virus Panel (PCR) (EMANUEL) - Final, Complete 10/19/19 Blood Culture, Received Pending 10/19/19 Blood Culture, Received Pending Home Medications Scheduled Aspirin (Aspirin) 325 Mg Tablet, 325 MG PO DAILY Carvedilol (Carvedilol) 6.25 Mg Tablet, 6.25 MG PO BID Furosemide (Lasix) 40 Mg Tablet, 40 MG PO BID 0800 AND 1400 Guaifenesin (Mucinex) 600 Mg Tab.er.12h, 600 MG PO BID Hyoscyamine Sulfate (Hyoscyamine Sulfate) 0.125 Mg Tab.rapdis, 0.125 MG PO Q8H Insulin Aspart Protamine/Aspar (Novolog Mix 70-30 Vial) 100 Unit/1 Ml Vial, 18 UNITS SC BID 0730 AND 1730 Levothyroxine Sodium (Synthroid) 125 Mcg Tablet, 125 MCG PO QAM Loratadine (Claritin) 10 Mg Capsule, 10 MG PO DAILY Metformin HCl (Metformin HCl) 500 Mg Tablet, 500 MG PO BID 0800 AND 1600 Polyethylene Glycol 3350 (Miralax) 119 Gm Powder, 17 GRAM PO DAILY Sennosides/Docusate Sodium (Senna-S Tablet) 1 Each Tablet, 2 TAB PO BID 0800/1600 Simvastatin (Simvastatin) 40 Mg Tablet, 40 MG PO QHS Tamsulosin HCl (Flomax) 0.4 Mg Capsule, 0.4 MG PO DAILY Scheduled PRN Acetaminophen (Acetaminophen) 325 Mg Tablet, 650 MG PO Q4H PRN for PAIN / FEVER Albuterol Sulfate (Albuterol Sulfate) 2.5 Mg/0.5 Ml Vial.neb, 1 VIAL INH Q4H PRN for SHORTNESS OF BREATH Bisacodyl (Dulcolax) 10 Mg Supp.rect, 10 MG LA DAILY PRN for CONSTIPATION Glucagon,Human Recombinant (Glucagon Emergency Kit) 1 Mg Vial, 1 MG IM ASDIRECTED PRN for LOW BLOOD SUGAR Magnesium Hydroxide (Milk of Magnesia) 400 Mg/5 Ml Oral.susp, 30 ML PO DAILY PRN for CONSTIPATION Sodium Phosphate,Wood-Dibasic (Enema Ready To Use) 133 Ml Enema, 1 GEOFF LA DAILY PRN for CONSTIPATION Allergies Coded Allergies: No Known Drug Allergies (Verified Allergy, Unknown, 10/08/19) A-FIB/CHADSVASC A-FIB History Current/History of A-Fib/PAF?: No AURELIA SO MD Oct 19, 2019 10:39
[2019-10-19] MEDS ORDERED: VANCOMYCIN HCL 1,000 MG, VIAL MATE ADAPTER 1 EACH in D5W 250 ML IV ONE (11:00)
--- NOTE | 2019-10-19 11:01 | PHACANCOPD ---
PHARMACY VANCOMYCIN DOSING Pt Demographics Demographics Patient Age:74 , Weight:90.000 , Gender: male Adjusted Body Weight Date: 10/19/19, Adjusted Body Weight: Kg Events Past 24 Hours Events Past 24 Hours: YES: Diuretic Therapy, Fever, Elevation in WBC Vancomycin Vancomycin Target Ranges: 15-20 mcg/ml Vancomycin Load Y/N: Yes Load Dose Date Time Vancomycin Load Dose: Date: 2 GM Time: 1100 Vancomycin Dose Date: 10/19/19. Current Vancomycin Dose: [1 GM IV Q12H] Intermittent Dosing?: No Labs Labs Item Value Date Time White Blood Count 18.5 10^3/uL H 10/19/19 0654 Oxygen Delivery Method Nasal Cannula 10/19/19 1031 Oxygen Flow Rate 6.0 L/min 10/19/19 1031 Vital Signs Label Value Date Time Patient Temperature 100.9 degrees F 10/19/19 1031 Temperature Source Rectal 10/19/19 1031 Pulse 104 10/19/19 1031 Pulse 105 10/19/19 1016 Pulse 104 10/19/19 1001 Micro Microbiology 10/19/19 Respiratory Virus Panel (PCR) (EMANUEL) - Final, Complete 10/19/19 Blood Culture, Received Pending 10/19/19 Blood Culture, Received Pending Creatinine Clearance Date:10/19/19. Creatinine Clearance: . Assessment and Plan Maintaining Current Dose?: Yes Reason for dose change: Trough too high, No Dose Change Pharmacist Note Pharmacist Note Date: 10/19/19. Pharmacist note: Pharmacy consulted for dosing of Vancomycin for treatment of right middle and upper lobe pneumonia as shown on Chest CT. Patient is febrile, tachycardic, and an elevated white count. Patient is also receiving Zosyn 4.5 gm q6h. Patient has no prior MRSA or vanco history here at [facility], MRSA PCR has been ordered. We'll load him with 2 gms and follow with 1 gm IV q12h. Pharmacy will continue to monitor and make adjustments as needed. [facility] Oct 19, 2019 11:01
[2019-10-19] MEDS: KCL 40MEQ IN D5/0.45NS 1000ML 1,000 ML IV SCH (11:38)
[2019-10-19 12:01] LABS: MAGNESIUM LEVEL 1.4 MG/DL (1.8-2.4)
[2019-10-19 12:06] LABS: ALBUMIN 2.4 GM/DL (3.2-5.2); BILIRUBIN,DIRECT 0.2 MG/DL (0.0-0.2); BILIRUBIN,TOTAL 0.8 MG/DL (0.2-1.0); TOTAL PROTEIN 6.2 GM/DL (6.4-8.2)
[2019-10-19] MEDS: VANCOMYCIN HCL 1,000 MG, VIAL MATE ADAPTER 1 EACH in D5W 250 ML IV SCH (12:55)
[2019-10-19] MEDS: HEPARIN SOD (PORCINE) 5000 UNITS/ML VIAL SC SCH ×2 (14:25→20:38)
[2019-10-19] MEDS: PIPERACILLIN/TAZOBACTAM SOD 4.5 GM in D5W MINI-BAG PLUS 50 ML IV SCH ×2 (14:25→20:38)
[2019-10-19] MEDS ORDERED: DEXTROSE 50% 50 ML SYRINGE IV PRN (16:45)
[2019-10-19] MEDS ORDERED: MAG SULF 1GM/100ML (MAG RUN) 1 GM in IV 1 EA IV ONE (16:45)
[2019-10-19] MEDS ORDERED: GLUCOSE 4 GM CHEW TABLET PO PRN (16:45)
[2019-10-19] MEDS ORDERED: GLUCAGON FOR INJ 1 MG VIAL (J1610) SC PRN (16:45)
[2019-10-19 17:21] LABS: FREE THYROXINE INDEX 3.7 % (1.4-3.8); THYROID STIMULATING HORMONE 1.43 uIU/ML (0.358-3.740); THYROXINE (T4) 9.3 UG/DL (4.5-12.0)
[2019-10-19] MEDS: HumaLOG INSULIN (NovoLOG) PER UNIT SC SCH (18:24)
[2019-10-20] VITALS (8 sets, daily range): BP systolic 95–120; BP diastolic 50–57
[2019-10-20] MEDS: VANCOMYCIN HCL 1,000 MG, VIAL MATE ADAPTER 1 EACH in D5W 250 ML IV SCH (00:43)
[2019-10-20] MEDS: HumaLOG INSULIN (NovoLOG) PER UNIT SC SCH ×4 (00:52→19:02)
[2019-10-20] MEDS: KCL 40MEQ IN D5/0.45NS 1000ML 1,000 ML IV SCH ×3 (00:54→13:13)
[2019-10-20] MEDS: PIPERACILLIN/TAZOBACTAM SOD 4.5 GM in D5W MINI-BAG PLUS 50 ML IV SCH ×4 (01:57→19:02)
[2019-10-20 05:09] LABS: BASO # 0.1 10^3/uL (0.0-0.2); BASO % 0.5 % (0.0-1.0); EOS # 0.2 10^3/uL (0.0-0.5); EOS % 1.1 % (0.0-3.0); HEMOGLOBIN 11.6 g/dl (13.5-17.5); LYMPH # 0.8 10^3/uL (1.5-5.0); LYMPH % 3.8 % (24.0-44.0); MEAN CORPUSCULAR HEMOGLOBIN 23.6 pg (27.0-33.0); MEAN CORPUSCULAR HGB CONC 30.5 g/dl (32.0-36.5); MEAN CORPUSCULAR VOLUME 77.4 fl (80.0-96.0); MONO # 0.9 10^3/uL (0.0-0.8); MONO % 4.3 % (0.0-5.0); NEUTROPHILS # 18.4 10^3/uL (1.5-8.5); NEUTROPHILS % 89.8 % (36.0-66.0); PLATELET COUNT, AUTOMATED 297 10^3/uL (150-450); RED BLOOD COUNT 4.91 10^6/uL (4.30-6.10); WHITE BLOOD COUNT 20.4 10^3/uL (4.0-10.0)
[2019-10-20 05:39] LABS: BLOOD UREA NITROGEN 18 MG/DL (7-18); CALCIUM LEVEL 7.7 MG/DL (8.8-10.2); CARBON DIOXIDE LEVEL 28 MEQ/L (21-32); CHLORIDE LEVEL 108 MEQ/L (98-107); CREATININE FOR GFR 0.94 MG/DL (0.70-1.30); GLOMERULAR FILTRATION RATE > 60.0 (>42); GLUCOSE, FASTING 177 MG/DL (70-100); POTASSIUM SERUM 3.7 MEQ/L (3.5-5.1); SODIUM LEVEL 140 MEQ/L (136-145)
[2019-10-20 08:49] LABS: MAGNESIUM LEVEL 2.1 MG/DL (1.8-2.4)
[2019-10-20] MEDS: HEPARIN SOD (PORCINE) 5000 UNITS/ML VIAL SC SCH ×2 (08:52→21:03)
--- NOTE | 2019-10-20 18:12 | IPNPDOC ---
Text Note Date of Service The patient was seen on 10/20/19. NOTE S: Pt examined at bedside. Borderline soft BP this morning. He has no other complaints besides cough. No fever or chills. Continues on broad-spectrum antibiotics for multilobar pneumonia. PE: Vitals: see below General exam: A&O, NAD, resting comfortably, speaking full sentences HEENT: NCAT, EOMI, PERRLA, clear oropharynx without exudates, edentulous roof, poor dentition inferiorly, uvula & trachea midline, no postnasal drip Cardiac: RRR, normal S1 & S2, PPM left upper chest Respiratory: bilateral crackles and expiratory wheezing, R>L. Diminished breath sounds throughout. No accessory muscle use or respiratory distress Abdomen: soft, NT, ND, hyperactive bowel sounds Extremity: diminished pulses throughout in UE & LE, slightly better on right side of body, trace LE edema, no calf tenderness or swelling Skin: [place], warm, dry, no visible rash Msk: limited on right side from prior stroke. Fully intact left side, normal tone & superintendent local strength Neuro: mumbled speech-this is reportedly his baseline, decreased sensation all limbs, unable to localize soft and sharp touch in all extremities. Sensation present above the knees. Residual weakness right side of body A/P: Multifocal pneumonia, septic state resolved * Patient has had multiple episodes of aspiration pneumonia & pneumonitis. Failed swallow eval this morning. Continue NPO and aspiration precaution * Option of PEG tube discussed with patient, risks, benefits, alternatives di scussed. He would like to proceed with PEG vs J-tube. Surgery consulted, appreciate Dr. Rea's time. * Continue Zosyn, Vanc DC'd - MRSA negative. Patient has been afebrile over the past 24 hours * Is clinically improving, monitor leukocytosis. Hold by mouth meds Chronic respiratory failure * Chronically on 5 L nasal cannula per recent discharge. Noted to be satting 84% on room air upon admission * Doing well on 3-5 L NC today Recurrent aspiration * See #1 * Continue IV fluids, awaiting PEG versus J-tube Hypokalemia * Resolved with supplementation, potassium added to fluids Hypocalcemia * improved with supplement. Corrected Ca = 9 this am. Monitor Hypomagnesemia * Normalized with supplement Hypoglycemia * hypoglycemic protocol in place Chronic CHF, likely diastolic * echo 10/10: normal or near normal LV systolic function, inconclusive for evaluation of diastolic function due to underlying A. fib * not fluid overloaded. Continue maintenance fluids as he is NPO Hypothyroidism * Normal on admission. Takes 125mcg at home * Given his nothing by mouth, will transition to IV CVA with residual spastic right hemiparesis PVD with hx of ulcers followed by Dr. Degroot No signs of necrosis or ischemic limb currently IDDM2 with diabetic neuropathy see above 3rd degree block, s/p DCPM Hypertensive heart disease Hyperlipidemia BPH Vitamin D & B12 deficiency DVT ppx: heparin sc CODE STATUS: Discussed with patient bedside with nurse present. Explained in depth what DNR/DNI entails. He would like to continue: NO intubation, NO compressions, YES to feeding tube. MOLST form updated. DISPO: awaiting PEG vs J tube placement w/ Dr. Kimball. Irby in ICU overnight. Is considering possible HEALTH TEACHER, but continue active treatment currently. VS,Fishbone, I+O VS, Fishbone, I+O Laboratory Tests 10/20/19 04:52 Vital Signs Date Time Temp Pulse Resp B/P (MAP) Pulse Ox O2 Delivery O2 Flow Rate FiO2 10/20/19 16:00 2.0 10/20/19 16:00 98.3 87 27 115/51 (72) 98 Nasal Cannula I&O- Last 24 Hours up to 6 AM 10/20/19 06:00 Intake Total 2070 ml Output Total 100 ml Balance 1970 ml GME ATTESTATION GME ATTESTATION My faculty preceptor for this patient encounter was physically present during th e encounter and was fully available. All aspects of the patient interview, examination, medical decision making process, and medical care plan development were reviewed and approved by the faculty preceptor. The faculty preceptor is aware and concurs with the plan as stated in the body of this note and will attest to such by his/her cosignature. ISABELA ESTRADA DO Oct 20, 2019 18:12
[2019-10-21] VITALS (7 sets, daily range): BP systolic 94–158; BP diastolic 49–73
[2019-10-21] MEDS: HumaLOG INSULIN (NovoLOG) PER UNIT SC SCH ×4 (00:03→17:29)
[2019-10-21] MEDS: PIPERACILLIN/TAZOBACTAM SOD 4.5 GM in D5W MINI-BAG PLUS 50 ML IV SCH ×4 (01:53→20:25)
[2019-10-21 05:20] LABS: BASO # 0.1 10^3/uL (0.0-0.2); BASO % 0.6 % (0.0-1.0); EOS # 0.3 10^3/uL (0.0-0.5); EOS % 2.2 % (0.0-3.0); HEMATOCRIT 37.8 % (42.0-52.0); HEMOGLOBIN 10.9 g/dl (13.5-17.5); LYMPH # 0.9 10^3/uL (1.5-5.0); MEAN CORPUSCULAR HEMOGLOBIN 22.9 pg (27.0-33.0); MEAN CORPUSCULAR HGB CONC 28.8 g/dl (32.0-36.5); MEAN CORPUSCULAR VOLUME 79.6 fl (80.0-96.0); MONO # 0.9 10^3/uL (0.0-0.8); MONO % 7.4 % (0.0-5.0); NEUTROPHILS # 10.3 10^3/uL (1.5-8.5); NEUTROPHILS % 82.2 % (36.0-66.0); PLATELET COUNT, AUTOMATED 292 10^3/uL (150-450); RED BLOOD COUNT 4.75 10^6/uL (4.30-6.10); WHITE BLOOD COUNT 12.5 10^3/uL (4.0-10.0)
[2019-10-21 05:48] LABS: BLOOD UREA NITROGEN 11 MG/DL (7-18); CALCIUM LEVEL 7.8 MG/DL (8.8-10.2); CARBON DIOXIDE LEVEL 31 MEQ/L (21-32); CHLORIDE LEVEL 111 MEQ/L (98-107); CREATININE FOR GFR 0.84 MG/DL (0.70-1.30); GLOMERULAR FILTRATION RATE > 60.0 (>42); GLUCOSE, FASTING 186 MG/DL (70-100); MAGNESIUM LEVEL 1.9 MG/DL (1.8-2.4); POTASSIUM SERUM 3.9 MEQ/L (3.5-5.1); SODIUM LEVEL 143 MEQ/L (136-145)
[2019-10-21] MEDS: KCL 40MEQ IN D5/0.45NS 1000ML 1,000 ML IV SCH ×2 (07:28→20:22)
[2019-10-21] MEDS: LEVOTHYROXINE 100 MCG (0.1MG) VIAL IV SCH (08:18)
[2019-10-21] MEDS: HEPARIN SOD (PORCINE) 5000 UNITS/ML VIAL SC SCH ×2 (08:18→20:25)
--- NOTE | 2019-10-21 11:33 | IPNPDOC ---
Text Note Date of Service The patient was seen on 10/21/19. NOTE S: Pt examined at bedside in ICU. Overnight, had few beats of VTach- asymptomatic. Pt states he feels fine and has no complaints. Denies any coughing or sputum production. Afebrile overnight. BP continues to be borderline soft, patient asymptomatic and otherwise improving. No fever, chills, nausea, vomiting, abdominal pain. PE: Vitals: see below General exam: A&Ox2- aware of self & location, wrong yr & month, NAD, resting comfortably, speaking full sentences HEENT: NCAT, EOMI, PERRLA, clear oropharynx without exudates, edentulous roof, poor dentition inferiorly, uvula & trachea midline, no postnasal drip Cardiac: RRR, normal S1 & S2, PPM left upper chest Respiratory: bilateral rhonchi and expiratory wheezing, R>L. No appreciable crackles today. Diminished breath sounds throughout. No excess muscle use/respiratory distress Abdomen: soft, NT, ND, hypoactive bowel sounds Extremity: diminished pulses throughout in UE & LE, slightly better on right side of body, trace LE edema, no calf tenderness or swelling Skin: [place], warm, dry, no visible rash Msk: limited on right side from prior stroke. Fully intact left side, normal tone & tail ripper strength Neuro: mumbled speech-this is reportedly his baseline, decreased sensation all limbs, unable to localize soft and sharp touch in all extremities. Sensation present above the knees. Residual weakness right side of body A/P: Multifocal pneumonia, septic state resolved * Continue Zosyn. Patient afebrile in past 24 hours. White count trending down. * Patient has had multiple episodes of aspiration pneumonia & pneumonitis. Failed swallow eval yesterday, will repeat today. In meanwhile, continue NPO and aspiration precaution. Continue holding by mouth meds * Patient requesting to have feeding tube placed. Dr. Rea consulted, appreciate his input Chronic respiratory failure * Chronically on 5 L nasal cannula per recent discharge. Noted to be satting 84% on room air upon admission * Doing well on 3-5 L NC today Recurrent aspiration * See #1 * Continue IV fluids, awaiting PEG versus J-tube Chronic CHF, likely diastolic * echo 10/10: normal or near normal LV systolic function, inconclusive for evaluation of diastolic function due to underlying A. fib * not fluid overloaded. Continue maintenance fluids as he is NPO Hypothyroidism * Normal on admission. Takes 125mcg at home * Given his nothing by mouth, will transition to IV IDDM2 with diabetic neuropathy * Continue D5 and fluids, hypoglycemic protocol in place * Only insulin coverage as he is nothing by mouth and concern sugars drop too low CVA with residual spastic right hemiparesis PVD with hx of ulcers followed by Dr. Degroot No signs of necrosis or ischemic limb currently 3rd degree block, s/p DCPM Hypertensive heart disease Hyperlipidemia BPH Vitamin D & B12 deficiency DVT ppx: heparin sc CODE STATUS: DNR/DNI : NO intubation, NO compressions, YES to feeding tube DISPO: awaiting PEG vs J tube placement w/ Dr. Rea. Denigrated out of ICU, c ontinue on telemetry. Is considering possible NATIONAL SALES EXECUTIVE, but requested to continue active treatment currently. VS,Fishbone, I+O VS, Fishbone, I+O Laboratory Tests 10/21/19 04:57 10/21/19 04:58 Vital Signs Date Time Temp Pulse Resp B/P (MAP) Pulse Ox O2 Delivery O2 Flow Rate FiO2 10/21/19 08:00 98.4 79 20 127/58 (81) 98 Nasal Cannula 2.0 I&O- Last 24 Hours up to 6 AM 10/21/19 06:00 Intake Total 2040 ml Output Total 0 ml Balance 2040 ml GME ATTESTATION GME ATTESTATION My faculty preceptor for this patient encounter was physically present during the encounter and was fully available. All aspects of the patient interview, examination, medical decision making process, and medical care plan development were reviewed and approved by the faculty preceptor. The faculty preceptor is aware and concurs with the plan as stated in the body of this note and will attest to such by his/her cosignature. ISABELA ESTRADA DO Oct 21, 2019 11:32
[2019-10-21] MEDS: MAG SULF 1GM/100ML (MAG RUN) 1 GM in IV 1 EA IV SCH ×7 (12:44→17:51)
[2019-10-21] MEDS: KCL 10MEQ/100ML SWI (KRUN) 10 MEQ in IV 1 EA IV SCH ×6 (13:54→16:22)
[2019-10-22 00:09] VITALS: BP 151/76
[2019-10-22] MEDS: HumaLOG INSULIN (NovoLOG) PER UNIT SC SCH ×4 (00:59→18:18)
[2019-10-22] MEDS: PIPERACILLIN/TAZOBACTAM SOD 4.5 GM in D5W MINI-BAG PLUS 50 ML IV SCH ×4 (01:03→19:59)
[2019-10-22 04:00] VITALS: BP 130/62
[2019-10-22 06:14] LABS: BASO # 0.1 10^3/uL (0.0-0.2); BASO % 0.7 % (0.0-1.0); EOS # 0.2 10^3/uL (0.0-0.5); EOS % 2.2 % (0.0-3.0); HEMATOCRIT 39.8 % (42.0-52.0); HEMOGLOBIN 11.7 g/dl (13.5-17.5); LYMPH # 0.7 10^3/uL (1.5-5.0); LYMPH % 7.6 % (24.0-44.0); MEAN CORPUSCULAR HEMOGLOBIN 23.2 pg (27.0-33.0); MEAN CORPUSCULAR HGB CONC 29.4 g/dl (32.0-36.5); MONO # 0.8 10^3/uL (0.0-0.8); MONO % 9.3 % (0.0-5.0); NEUTROPHILS # 6.8 10^3/uL (1.5-8.5); NEUTROPHILS % 79.6 % (36.0-66.0); PLATELET COUNT, AUTOMATED 319 10^3/uL (150-450); RED BLOOD COUNT 5.04 10^6/uL (4.30-6.10); WHITE BLOOD COUNT 8.5 10^3/uL (4.0-10.0)
[2019-10-22 06:30] LABS: BLOOD UREA NITROGEN 6 MG/DL (7-18); CALCIUM LEVEL 7.6 MG/DL (8.8-10.2); CARBON DIOXIDE LEVEL 27 MEQ/L (21-32); CHLORIDE LEVEL 109 MEQ/L (98-107); CREATININE FOR GFR 0.81 MG/DL (0.70-1.30); GLOMERULAR FILTRATION RATE > 60.0 (>42); GLUCOSE, FASTING 180 MG/DL (70-100); MAGNESIUM LEVEL 2.2 MG/DL (1.8-2.4); POTASSIUM SERUM 4.5 MEQ/L (3.5-5.1); SODIUM LEVEL 143 MEQ/L (136-145)
[2019-10-22 07:56] LABS: ALBUMIN 1.9 GM/DL (3.2-5.2); ALT/SGPT 10 U/L (12-78); BILIRUBIN,DIRECT 0.2 MG/DL (0.0-0.2); BILIRUBIN,TOTAL 0.5 MG/DL (0.2-1.0); PHOSPHORUS LEVEL 1.4 MG/DL (2.5-4.9); TOTAL PROTEIN 6.3 GM/DL (6.4-8.2)
[2019-10-22 08:00] VITALS: BP 132/61
[2019-10-22 08:13] LABS: PREALBUMIN 9.8 MG/DL (20.0-40.0)
[2019-10-22] MEDS: KCL 40MEQ IN D5/0.45NS 1000ML 1,000 ML IV SCH (08:57)
[2019-10-22] MEDS: HEPARIN SOD (PORCINE) 5000 UNITS/ML VIAL SC SCH ×2 (08:57→19:59)
[2019-10-22] MEDS: LEVOTHYROXINE 100 MCG (0.1MG) VIAL IV SCH (08:57)
--- NOTE | 2019-10-22 12:09 | IPNPDOC ---
Text Note Date of Service The patient was seen on 10/22/19. NOTE S: Pt examined at bedside on med floor. Doing well, no f/c/n/v/abd pain. Reports he is breathing well and not coughing. Had 6-beats VTach again overnight- asymptomatic. He has no complaints. Still NPO. BP doing better. PE: Vitals: see below General exam: A&Ox1- aware of self, wrong location, yr, & month, NAD, resting comfortably, speaking full sentences HEENT: NCAT, EOMI, PERRLA, edentulous roof, poor dentition inferiorly, uvula & trachea midline Cardiac: distant sounds, RRR, normal S1 & S2, PPM left upper chest Respiratory: diffuse rhonchi, improving wheezing, R>L. Diminished breath sounds throughout. No excess muscle use/respiratory distress Abdomen: soft, NT, ND, hypoactive bowel sounds Extremity: diminished pulses throughout in UE & LE, slightly better on right side of body, trace LE edema, no calf tenderness or swelling Skin: [place], warm, dry, no visible rash Msk: limited on right side from prior stroke. Fully intact left side, normal tone & supervisor reclamation strength Neuro: mumbled speech-this is reportedly his baseline, decreased sensation all limbs, unable to localize soft and sharp touch in all extremities. Sensation present above the knees. Residual weakness right side of body A/P: Aspiration pneumonia, septic state resolved * Continue Zosyn. Continues to be afebrile. WBC normalized * Patient has had multiple episodes of aspiration pneumonia & pneumonitis. Failed swallow eval x2 this admission. Continue NPO throughout the weekend. On aspiration precaution. Continue holding by mouth meds * Patient requesting to have feeding tube placed. Dr. Rea consulted, appreciate surgical input Recurrent aspiration * See #1 * Continue IV fluids, awaiting PEG versus J-tube Chronic CHF, likely diastolic * echo 10/10: normal or near normal LV systolic function, inconclusive for evaluation of diastolic function due to underlying A. fib * not fluid overloaded on exam. Continue maintenance fluids as he is NPO Malnutrition: * No PO intake last few days and low pre/albumin * Possible PEG vs J-tube, see above Hypothyroidism * Normal on admission. Takes 125mcg at home * Given his nothing by mouth, continue IV supplement IDDM2 with diabetic neuropathy * Continue D5 fluids, hypoglycemic protocol in place * No long-acting insulin, continue q6h coverage as he is nothing by mouth Hypophosphatemia * supplemented CVA with residual spastic right hemiparesis PVD with hx of ulcers followed by Dr. Degroot No signs of necrosis or ischemic limb currently 3rd degree block, s/p DCPM Hypertensive heart disease Hyperlipidemia BPH Vitamin D & B12 deficiency DVT ppx: heparin sc CODE STATUS: DNR/DNI : NO intubation, NO compressions, YES to feeding tube DISPO: awaiting PEG vs J tube placement w/ Surgery. Continue on telemetry. Is considering possible HOUSING INSPECTOR, but requested to continue active treatment currently. VS,Fishbone, I+O VS, Fishbone, I+O Laboratory Tests 10/22/19 05:31 Vital Signs Date Time Temp Pulse Resp B/P (MAP) Pulse Ox O2 Delivery O2 Flow Rate FiO2 10/22/19 08:00 97.0 83 18 132/61 (84) 95 Room Air 10/21/19 20:00 1.0 I&O- Last 24 Hours up to 6 AM 10/22/19 06:00 Intake Total 1490 ml Output Total 0 ml Balance 1490 ml GME ATTESTATION GME ATTESTATION My faculty preceptor for this patient encounter was physically present during the encounter and was fully available. All aspects of the patient interview, exa mination, medical decision making process, and medical care plan development were reviewed and approved by the faculty preceptor. The faculty preceptor is aware and concurs with the plan as stated in the body of this note and will attest to such by his/her cosignature. ISABELA ESTRADA DO Oct 22, 2019 12:08
[2019-10-22] MEDS: D5W/0.45% SODIUM CHLORIDE 1,000 ML IV SCH (12:24)
--- NOTE | 2019-10-22 12:53 | CR ---
DATE OF CONSULTATION: 10/21/2019 REASON FOR CONSULTATION: Request for percutaneous endoscopic gastrostomy tube. HISTORY OF THE PRESENT ILLNESS: The patient is a 74-year-old man who was admitted on 10/19/2019 with a history of some vomiting and hypoglycemia. On admission, he was found to have bilateral pulmonary infiltrates, and it was felt to be likely related to aspiration. He apparently had recently suffered a previous episode of aspiration pneumonia. The patient underwent a swallowing trial by speech therapy and was apparently felt to have signs and symptoms of aspiration. I have been requested to place a gastrostomy. ALLERGIES: The patient has no reported drug allergies. CURRENT MEDICATIONS: Include Synthroid, insulin, Zosyn, and subcutaneous heparin. MEDICAL HISTORY: Is significant for a prior cerebrovascular accident with some right hemiparesis. He has type 2 diabetes. He has a history of a dual-chamber pacemaker with hypertensive heart disease and congestive heart failure. He has benign prostatic hyperplasia, hypothyroidism, and peripheral vascular disease. SURGICAL HISTORY: Is significant for pacemaker placement in 2013. He has had an open reduction and internal fixation of his right hip. He has had some wound treatments by podiatry and the wound care center. PHYSICAL EXAMINATION: The patient is sitting propped up in the hospital bed. He appears alert and fairly comfortable at rest. Heart examination shows a regular rhythm. His lungs show bilateral breath sounds. The abdomen is somewhat obese, soft, and nontender. He has no abdominal scarring identified. LABORATORY STUDIES: Show a white count of 12 which is decreased significantly from the time of admission. Hemoglobin is 11, hematocrit 38, and the platelet count is 292,000. Chemistry profile shows a sodium of 143, potassium 3.9, chloride 111, CO2 of 31, BUN of 11, creatinine 0.8, and glucose of 186. He had a CT scan of the chest done on 10/19/2019, and review of these images shows some lower lobe infiltrates and small effusions. It does not show his upper abdomen well. IMPRESSION: Is aspiration with aspiration pneumonia, recurrent. RECOMMENDATIONS: The patient does appear to be a candidate for a percutaneous endoscopic gastrostomy. The nurse did suggest that speech therapy indicated that they might see some improvement if they work with him on some swallowing training. There is certainly not an urgent need for placement of a percutaneous endoscopic gastrostomy (PEG) tube at this time. I will schedule this at the next available opportunity in outpatient procedures, which is likely to be 10/25/2019. The patient was counseled regarding the nature of the procedure and is willing to proceed. Perhaps he will make enough improvement with speech therapy that the procedure will not be required. SHAUND
[2019-10-22] MEDS ORDERED: SODIUM PHOSPHATE INJ 20 MMOL in D5W 250 ML IV ONE (14:00)
[2019-10-22 16:00] VITALS: BP 130/60
[2019-10-22 17:00] VITALS: BP 132/86
[2019-10-22 22:00] VITALS: BP 114/65
[2019-10-23] MEDS: HumaLOG INSULIN (NovoLOG) PER UNIT SC SCH ×4 (00:56→17:45)
[2019-10-23] MEDS: D5W/0.45% SODIUM CHLORIDE 1,000 ML IV SCH ×3 (00:56→19:46)
[2019-10-23] MEDS: PIPERACILLIN/TAZOBACTAM SOD 4.5 GM in D5W MINI-BAG PLUS 50 ML IV SCH ×4 (02:00→20:19)
[2019-10-23 06:00] VITALS: BP 131/65
[2019-10-23 06:15] LABS: BASO # 0.1 10^3/uL (0.0-0.2); EOS # 0.2 10^3/uL (0.0-0.5); EOS % 2.5 % (0.0-3.0); HEMATOCRIT 39.3 % (42.0-52.0); LYMPH # 0.7 10^3/uL (1.5-5.0); MEAN CORPUSCULAR HEMOGLOBIN 23.4 pg (27.0-33.0); MEAN CORPUSCULAR HGB CONC 30.5 g/dl (32.0-36.5); MEAN CORPUSCULAR VOLUME 76.8 fl (80.0-96.0); MONO # 0.7 10^3/uL (0.0-0.8); MONO % 10.1 % (0.0-5.0); NEUTROPHILS # 5.1 10^3/uL (1.5-8.5); NEUTROPHILS % 75.7 % (36.0-66.0); PLATELET COUNT, AUTOMATED 336 10^3/uL (150-450); RED BLOOD COUNT 5.12 10^6/uL (4.30-6.10); WHITE BLOOD COUNT 6.7 10^3/uL (4.0-10.0)
[2019-10-23 06:45] LABS: BLOOD UREA NITROGEN 5 MG/DL (7-18); CALCIUM LEVEL 7.7 MG/DL (8.8-10.2); CARBON DIOXIDE LEVEL 25 MEQ/L (21-32); CHLORIDE LEVEL 106 MEQ/L (98-107); GLOMERULAR FILTRATION RATE > 60.0 (>42); GLUCOSE, FASTING 184 MG/DL (70-100); MAGNESIUM LEVEL 1.9 MG/DL (1.8-2.4); POTASSIUM SERUM 3.9 MEQ/L (3.5-5.1); SODIUM LEVEL 139 MEQ/L (136-145)
[2019-10-23] MEDS: LEVOTHYROXINE 100 MCG (0.1MG) VIAL IV SCH (08:27)
[2019-10-23] MEDS: HEPARIN SOD (PORCINE) 5000 UNITS/ML VIAL SC SCH ×2 (08:28→20:19)
--- NOTE | 2019-10-23 09:34 | IPNPDOC ---
Text Note Date of Service The patient was seen on 10/23/19. NOTE Subjective: Pt seen and examined at bedside. No new medical complaints, no acute overnight events reported. Had 12-beats VTach again overnight-asymptomatic, VSS. Still NPO. PE: Vitals: see below General exam: NAD, lying comfortably in bed HEENT: NCAT, EOMI, edentulous roof, poor dentition Cardiac: +S1S2, PPM left sub-clav pocket Respiratory: scattered rhonchi, R>L. Diminished breath sounds throughout Abdomen: soft, NT, ND, hypoactive bowel sounds Extremity: diminished pulses throughout in UE & LE, slightly better on right side of body, trace LE edema, no calf tenderness or swelling Skin: [place], warm, dry, no visible rash Neuro: mumbled speech- reportedly his baseline, oriented to person and place only A/P: 74 yo male with multiple admissions for pneumonia/dysphagia, returns for multi- focal pneumonia secondary to aspiration, currently NPO for dysphagia. #Aspiration pneumonia - septic state resolved - Continue Zosyn day 05/15 - Patient has had multiple episodes of aspiration pneumonia & pneumonitis - failed swallow eval x2 this admission - continue NPO throughout the weekend. On aspiration precaution. - patient requesting to have feeding tube placed. Dr. Rea consulted, appreciate surgical input #Recurrent aspiration - See #1 - hoping for some improvements over weekend treating pneumonia in order to pass swallow eval - otherwise repeat swallow eval Thursday, continue IVF, possible PEG vs J-tube #V Tach - asymptomatic, VSS - keep K above 4, mag above 2 #Chronic CHF, likely diastolic - echo 10/10: normal or near normal LV systolic function, inconclusive for evaluation of diastolic function due to underlying A. fib - grossly euvolemic #Malnutrition: * No PO intake last few days and low pre/albumin * Possible PEG vs J-tube, see above #Hypothyroidism * Normal on admission. Takes 125mcg at home * Given his nothing by mouth, continue IV supplement #IDDM2 with diabetic neuropathy * Continue D5 fluids, hypoglycemic protocol in place * No long-acting insulin, continue q6h coverage as he is nothing by mouth #Hypophosphatemia * supplemented #CVA with residual spastic right hemiparesis #PVD with hx of ulcers followed by Dr. 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 Continue on telemetry. Is considering possible MOISTURE METER OPERATOR, but requested to continue active treatment currently. VS,Fishbone, I+O VS, Fishbone, I+O Laboratory Tests 10/23/19 05:58 Vital Signs Date Time Temp Pulse Resp B/P (MAP) Pulse Ox O2 Delivery O2 Flow Rate FiO2 10/23/19 06:00 98.8 80 20 131/65 (87) 93 Room Air 10/21/19 20:00 1.0 I&O- Last 24 Hours up to 6 AM 10/23/19 05:59 Intake Total 1281.66 ml Output Total 0 ml Balance 1281.66 ml AURELIA SO MD Oct 23, 2019 09:34
[2019-10-23] MEDS ORDERED: KCL 10MEQ/100ML SWI (KRUN) 10 MEQ in IV 1 EA IV ONE (10:00)
[2019-10-23 14:00] VITALS: BP 114/64
[2019-10-23 15:43] VITALS: BP 127/62
[2019-10-23 22:00] VITALS: BP 126/63
[2019-10-24] MEDS: HumaLOG INSULIN (NovoLOG) PER UNIT SC SCH ×4 (00:30→18:00)
[2019-10-24] MEDS: PIPERACILLIN/TAZOBACTAM SOD 4.5 GM in D5W MINI-BAG PLUS 50 ML IV SCH ×2 (02:31→08:15)
[2019-10-24] MEDS: D5W/0.45% SODIUM CHLORIDE 1,000 ML IV SCH ×2 (04:15→12:52)
[2019-10-24] MEDS ORDERED: LORazepam 2 MG/ML VIAL (J2060) As Ordered ONE (05:29)
[2019-10-24 06:00] VITALS: BP 109/55
[2019-10-24 06:18] LABS: BASO # 0.1 10^3/uL (0.0-0.2); BASO % 1.2 % (0.0-1.0); EOS # 0.1 10^3/uL (0.0-0.5); EOS % 2.3 % (0.0-3.0); HEMATOCRIT 40.2 % (42.0-52.0); LYMPH # 0.7 10^3/uL (1.5-5.0); MEAN CORPUSCULAR HGB CONC 29.9 g/dl (32.0-36.5); MONO # 0.8 10^3/uL (0.0-0.8); MONO % 14.5 % (0.0-5.0); NEUTROPHILS # 3.9 10^3/uL (1.5-8.5); NEUTROPHILS % 68.8 % (36.0-66.0); PLATELET COUNT, AUTOMATED 350 10^3/uL (150-450); RED BLOOD COUNT 5.22 10^6/uL (4.30-6.10); WHITE BLOOD COUNT 5.7 10^3/uL (4.0-10.0)
[2019-10-24 06:35] LABS: BLOOD UREA NITROGEN 4 MG/DL (7-18); CALCIUM LEVEL 7.7 MG/DL (8.8-10.2); CARBON DIOXIDE LEVEL 26 MEQ/L (21-32); CHLORIDE LEVEL 108 MEQ/L (98-107); CREATININE FOR GFR 0.77 MG/DL (0.70-1.30); GLOMERULAR FILTRATION RATE > 60.0 (>42); GLUCOSE, FASTING 162 MG/DL (70-100); MAGNESIUM LEVEL 1.9 MG/DL (1.8-2.4); PHOSPHORUS LEVEL 1.8 MG/DL (2.5-4.9); POTASSIUM SERUM 3.7 MEQ/L (3.5-5.1); SODIUM LEVEL 142 MEQ/L (136-145)
[2019-10-24] MEDS: LEVOTHYROXINE 100 MCG (0.1MG) VIAL IV SCH (08:15)
[2019-10-24] MEDS: HEPARIN SOD (PORCINE) 5000 UNITS/ML VIAL SC SCH ×2 (08:15→20:48)
--- NOTE | 2019-10-24 13:49 | IPNPDOC ---
Date Seen The patient was seen on 10/24/19. Progress Note SUBJECTIVE: Patient seen at bedside this morning. He claims to be doing much better than when he was first admitted. We discussed today's evaluation with speech pathology and his swallow study, he explained that he understood. Additionally, we discussed that we would plan for potential PEG tube placement should the swallow evaluation fail. He was agreeable. Finally, we discussed whether or not he would be interested in discussing hospice care and whether or not he understood what that meant. He says he understands what hospice care is and he has no interest in it. He denies any shortness of breath, chest pain, abdominal pain, difficulty urinating or passing stool. OBJECTIVE PHYSICAL EXAMINATION: VITAL SIGNS: Please see below. GENERAL: Patient is pleasant and cooperative, sitting up comfortably in bed, alert and oriented in no acute distress HEENT: Normocephalic, atraumatic. No scleral icterus. PERRLA. EOMI. no nasal discharge. No tracheal deviation. No obvious swollen lymph nodes CARDIOVASCULAR: Regular rate and rhythm. Normal S1 and S2. No murmurs, gallops or rubs noted RESPIRATORY: Symmetrical chest wall motion. Lungs clear to auscultation bilaterally. ABDOMINAL:. No obvious lesions noted. Normal bowel sounds in all 4 quadrants. Diffusely tympanic. No pain, tenderness, guarding or rigidity EXTREMITIES:. 2/4 pulses noted throughout. No leg swelling or tenderness NEUROLOGICAL: A&O x3. Right sided deficits in Cranial Nerves V, VII and XII noted. 3/5 muscle strength noted in R Upper extremity. 5/5 muscle strength noted in all other extremities. PSYCHOLOGICAL: Mood and affect were appropriate LABORATORY DATA, MICROBIOLOGY: Please see below. Imagin10/19/2019. Chest x-ray: Mild cardiomegaly with pacemaker. Air density overlying heart. Hiatal hernia versus pneumopericardium. Increased density in right perihilar region. Infiltrate versus pleural plaquing. CT scanning recommended Chest CT: Right middle lobe and right upper lobe pneumonia. Patchy infiltrate seen in left upper lobe. Large areas of rounded atelectasis in lower lobes bilaterally distort the major fissure and simulate the radiographic findings of pneumomediastinum or pneumopericardium. Hiatal hernia seen. DVT prophylaxis ordered?: 5000 units subcutaneous heparin ASSESSMENT AND PLAN: This is a 74-year-old male with past medical history of left-sided CVA with right hemiparesis, oropharyngeal dysfunction, third-degree block with pacemaker, and insulin-dependent type 2 diabetes presenting with right-sided aspiration pneumonia, found to have infiltrates in the right middle and upper lobes. PROBLEMS: #Aspiration pneumonia - Pt has been afebrile for greater than 48hrs. -Pt at 95% on room air -Leukocytosis resolved to 5.7 -Discontinued Abx -Continue NPO -Swallow evaluation today due to recurrent Aspirations -If failure will follow with surgery for PEG tube placement #Chronic CHF, likely diastolic -Pt has no signs of volume overload on exam. - echo 10/10: normal or near normal LV systolic function, inconclusive for evaluation of diastolic function due to underlying A. fib #Malnutrition: -Pt continues to be NPO, Albumin noted at 1.9 on the . -potential PEG placement #Hypothyroidism -c/w IV levothyroxine #IDDM2 with diabetic neuropathy -Continue D5 fluids, hypoglycemic protocol in place -No long-acting insulin, continue q6h coverage as he is nothing by mouth #CVA -residual spastic right hemiparesis noted on exam #PVD -hx of ulcers followed by Dr. 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, - s/p dual chamber PPM DISPOSITION: Pending swallow study with Speech Pathology this afternoon. [facility]O Vital Signs Date Time Temp Pulse Resp B/P (MAP) Pulse Ox O2 Delivery O2 Flow Rate FiO2 10/24/19 06:00 97.9 81 18 109/55 (73) 95 10/23/19 22:00 Room Air 10/21/19 20:00 1.0 I&O- Last 24 Hours up to 6 AM 10/24/19 06:00 Intake Total 200 ml Balance 200 ml Laboratory Data 24H LABS Laboratory Tests 2 10/23/19 17:41: Bedside Glucose (Misc Panel) 147H 10/24/19 00:25: Bedside Glucose (Misc Panel) 165H 10/24/19 05:25: Immature Granulocyte % (Auto) 1.2, Neutrophils (%) (Auto) 68.8H, Lymphocytes (%) (Auto) 12.0L, Monocytes (%) (Auto) 14.5H, Eosinophils (%) (Auto) 2.3, Basophils (%) (Auto) 1.2H, Neutrophils # (Auto) 3.9, Lymphocytes # (Auto) 0.7L, Monocytes # (Auto) 0.8, Eosinophils # (Auto) 0.1, Basophils # (Auto) 0.1, Nucleated Red Bl ood Cells % (auto) 0.0, Anion Gap 8, Glomerular Filtration Rate > 60.0, Calcium Level 7.7L, Phosphorus Level 1.8L, Magnesium Level 1.9 10/24/19 05:55: Bedside Glucose (Misc Panel) 156H 10/24/19 12:04: Bedside Glucose (Misc Panel) 201H CBC/BMP Laboratory Tests 10/24/19 05:25 Microbiology Microbiology 10/19/19 Respiratory Virus Panel (PCR) (EMANUEL) - Final, Complete 10/19/19 Blood Culture - Final, Complete NO GROWTH AFTER 5 DAYS 10/19/19 Blood Culture - Final, Complete NO GROWTH AFTER 5 DAYS GME ATTESTATION GME ATTESTATION My faculty preceptor for this patient encounter was physically present during the encounter and was fully available. All aspects of the patient interview, examination, medical decision making process, and medical care plan development were reviewed and approved by the faculty preceptor. The faculty preceptor is aware and concurs with the plan as stated in the body of this note and will attest to such by his/her cosignature. ATTENDING NOTE Patient was seen and examined by me this morning with the residents. Agree with the above assessment and plan PITER ZUÑIGA OMS-3 Oct 24, 2019 13:49 PAPA GODFREY MD Oct 24, 2019 15:25
[2019-10-24 14:00] VITALS: BP 128/65
[2019-10-24 22:00] VITALS: BP 151/74
[2019-10-25] MEDS: HumaLOG INSULIN (NovoLOG) PER UNIT SC SCH ×4 (00:38→18:00)
[2019-10-25] MEDS: D5W/0.45% SODIUM CHLORIDE 1,000 ML IV SCH ×2 (00:39→14:43)
[2019-10-25 06:00] VITALS: BP 134/60
[2019-10-25] MEDS ORDERED: ceFAZolin SOD 2 GM in IV 1 EA IV ONE (06:00)
[2019-10-25 07:29] LABS: BASO # 0.1 10^3/uL (0.0-0.2); BASO % 1.7 % (0.0-1.0); EOS # 0.1 10^3/uL (0.0-0.5); EOS % 2.4 % (0.0-3.0); HEMATOCRIT 40.4 % (42.0-52.0); HEMOGLOBIN 12.2 g/dl (13.5-17.5); LYMPH # 0.7 10^3/uL (1.5-5.0); LYMPH % 12.1 % (24.0-44.0); MEAN CORPUSCULAR HEMOGLOBIN 23.4 pg (27.0-33.0); MEAN CORPUSCULAR HGB CONC 30.2 g/dl (32.0-36.5); MEAN CORPUSCULAR VOLUME 77.5 fl (80.0-96.0); MONO # 0.7 10^3/uL (0.0-0.8); MONO % 12.1 % (0.0-5.0); NEUTROPHILS # 3.8 10^3/uL (1.5-8.5); NEUTROPHILS % 70.4 % (36.0-66.0); PLATELET COUNT, AUTOMATED 353 10^3/uL (150-450); RED BLOOD COUNT 5.21 10^6/uL (4.30-6.10); WHITE BLOOD COUNT 5.4 10^3/uL (4.0-10.0)
[2019-10-25 08:07] LABS: BLOOD UREA NITROGEN 3 MG/DL (7-18); CALCIUM LEVEL 7.8 MG/DL (8.8-10.2); CARBON DIOXIDE LEVEL 26 MEQ/L (21-32); CHLORIDE LEVEL 108 MEQ/L (98-107); CREATININE FOR GFR 0.68 MG/DL (0.70-1.30); GLOMERULAR FILTRATION RATE > 60.0 (>42); GLUCOSE, FASTING 174 MG/DL (70-100); MAGNESIUM LEVEL 1.8 MG/DL (1.8-2.4); PHOSPHORUS LEVEL 3.5 MG/DL (2.5-4.9); POTASSIUM SERUM 3.5 MEQ/L (3.5-5.1); SODIUM LEVEL 141 MEQ/L (136-145)
[2019-10-25] MEDS: LEVOTHYROXINE 100 MCG (0.1MG) VIAL IV SCH (08:11)
--- NOTE | 2019-10-25 10:09 | IPNPDOC ---
Date Seen The patient was seen on 10/25/19. Progress Note SUBJECTIVE: Patient seen at bedside this morning. He says he is doing well after the swallow evaluation yesterday. We discussed why the evaluation was required and that he is more predisposed to aspiration in the future. Additionally, we discussed the placement of a PEG tube and the implications that carries. He agreed that he understood and wants to go forward with it. He denies any SOB, chest pain, abdominal pain, difficulty urinating for passing stool. OBJECTIVE PHYSICAL EXAMINATION: VITAL SIGNS: Please see below. GENERAL: Patient is pleasant and cooperative, sitting up comfortably in bed, alert and oriented in no acute distress HEENT: Normocephalic, atraumatic. No scleral icterus. PERRLA. EOMI. no nasal discharge. No tracheal deviation. No obvious swollen lymph nodes CARDIOVASCULAR: Regular rate and rhythm. Normal S1 and S2. No murmurs, gallops or rubs noted RESPIRATORY: Symmetrical chest wall motion. Lungs clear to auscultation bilaterally. ABDOMINAL: No obvious lesions noted. Normal bowel sounds in all 4 quadrants. Diffusely tympanic. No pain, tenderness, guarding or rigidity EXTREMITIES: 2/4 pulses noted throughout. No leg swelling or tenderness NEUROLOGICAL: A&O x3. Right sided deficits in Cranial Nerves V, VII and XII noted. 3/5 muscle strength noted in R Upper extremity. 5/5 muscle strength noted in all other extremities. PSYCHOLOGICAL: Mood and affect were appropriate LABORATORY DATA, MICROBIOLOGY: Please see below. Imagin10/19/2019. Chest x-ray: Mild cardiomegaly with pacemaker. Air density overlying heart. Hiatal hernia versus pneumopericardium. Increased density in right perihilar region. Infiltrate versus pleural plaquing. CT scanning recommended Chest CT: Right middle lobe and right upper lobe pneumonia. Patchy infiltrate seen in left upper lobe. Large areas of rounded atelectasis in lower lobes bilaterally distort the major fissure and simulate the radiographic findings of pneumomediastinum or pneumopericardium. Hiatal hernia seen. DVT prophylaxis ordered?: 5000 units subcutaneous heparin ASSESSMENT AND PLAN: This is a 74-year-old male with past medical history of left-sided CVA with right hemiparesis, oropharyngeal dysfunction, third-degree block with pacemaker, and insulin-dependent type 2 diabetes presenting with right-sided aspiration pneumonia, found to have infiltrates in the right middle and upper lobes. PROBLEMS: #Aspiration pneumonia - Pt has been afebrile for greater than 48hrs. -Pt at 95% on room air today -WBC stable at 5.4 today -Continue NPO, pt failed his swallow study -Planned for PEG tube placement this afternoon #Chronic CHF, likely diastolic -Pt has no signs of volume overload on exam. - echo 10/10: normal or near normal LV systolic function, inconclusive for evaluation of diastolic function due to underlying A. fib #Malnutrition: -Pt continues to be NPO, Albumin noted at 1.9 on the . -PEG tube placement this afternoon. #Hypothyroidism -c/w IV levothyroxine #IDDM2 with diabetic neuropathy -Continue D5 fluids, hypoglycemic protocol in place -No long-acting insulin, continue q6h coverage as he is nothing by mouth #CVA -residual spastic right hemiparesis noted on exam #PVD -hx of ulcers followed by Dr. 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, - s/p dual chamber PPM DISPOSITION: Pending PEG tube placement and subsequent evaluation VS, I&O, 24H, Fishbone Vital Signs/I&O Vital Signs Date Time Temp Pulse Resp B/P (MAP) Pulse Ox O2 Delivery O2 Flow Rate FiO2 10/25/19 06:00 97.8 83 17 134/60 (84) 95 10/24/19 22:00 Room Air 10/21/19 20:00 1.0 I&O- Last 24 Hours up to 6 AM 10/25/19 06:00 Intake Total 1850 ml Output Total 0 ml Balance 1850 ml Laboratory Data 24H LABS Laboratory Tests 2 10/24/19 12:04: Bedside Glucose (Misc Panel) 201H 10/24/19 18:01: Bedside Glucose (Misc Panel) 122H 10/25/19 00:02: Bedside Glucose (Misc Panel) 172H 10/25/19 06:05: Bedside Glucose (Misc Panel) 160H 10/25/19 07:01: Immature Granulocyte % (Auto) 1.3, Neutrophils (%) (Auto) 70.4H, Lymphocytes (%) (Auto) 12.1L, Monocytes (%) (Auto) 12.1H, Eosinophils (%) (Auto) 2.4, Basophils (%) (Auto) 1.7H, Neutrophils # (Auto) 3.8, Lymphocytes # (Auto) 0.7L, Monocytes # (Auto) 0.7, Eosinophils # (Auto) 0.1, Basophils # (Auto) 0.1, Nucleated Red Blood Cells % (auto) 0.0, Anion Gap 7L, Glomerular Filtration Rate > 60.0, Calcium Level 7.8L, Phosphorus Level 3.5#, Magnesium Level 1.8 CBC/BMP Laboratory Tests 10/25/19 07:01 Microbiology Microbiology 10/19/19 Respiratory Virus Panel (PCR) (EMANUEL) - Final, Complete 10/19/19 Blood Culture - Final, Complete NO GROWTH AFTER 5 DAYS 10/19/19 Blood Culture - Final, Complete NO GROWTH AFTER 5 DAYS GME ATTESTATION GME ATTESTATION My faculty preceptor for this patient encounter was physically present during the encounter and was fully available. All aspects of the patient interview, examination, medical decision making process, and medical care plan development were reviewed and approved by the faculty preceptor. The faculty preceptor is aware and concurs with the plan as stated in the body of this note and will atte st to such by his/her cosignature. ATTENDING NOTE Patient was seen and examined by me this morning with the residents. Agree with the above assessment and plan PITER ZUÑIGA OMS-3 Oct 25, 2019 10:09 GENESIS SPANN D.O. Oct 25, 2019 17:12 PAPA GODFREY MD Oct 26, 2019 08:49
[2019-10-25 14:08] VITALS: BP 141/66
[2019-10-25] MEDS ORDERED: fentaNYL 100 MCG/2 ML INJECTION (J3010) As Ordered ONE (17:26)
[2019-10-25] MEDS ORDERED: MIDAZOLAM INJ 2 MG/2 ML VIAL (J2250) As Ordered ONE (17:26)
[2019-10-25] MEDS ORDERED: PROPOFOL 200 MG/20 ML VIAL As Ordered ONE (17:26)
[2019-10-25] MEDS ORDERED: LIDOCAINE 2% INJ 100 MG/5 ML SDV (FOR ANES.) As Ordered ONE (17:26)
[2019-10-25] MEDS ORDERED: ACETAMINOPHEN/CODEINE 300MG/30MG 12.5 ML UDC PEG PRN (18:15)
[2019-10-25] MEDS ORDERED: MORPHINE 2 MG/ML 1ML VIAL (J2270) IV PRN (18:15)
[2019-10-25] MEDS ORDERED: LR 1,000 ML IV SCH (18:30)
[2019-10-25] MEDS ORDERED: METOCLOPRAMIDE INJ 10MG/2ML VIAL (J2765) IV PRN (18:30)
[2019-10-25] MEDS ORDERED: fentaNYL 100 MCG/2 ML INJECTION (J3010) IV PRN (18:30)
[2019-10-25] MEDS ORDERED: ONDANSETRON 4MG/2ML VIAL (J2405) IV PRN (18:30)
[2019-10-25 19:20] VITALS: BP 152/78
[2019-10-25] MEDS: PANTOPRAZOLE 40MG INJ (PROTONIX) (C9113) IV SCH (21:40)
[2019-10-25 22:00] VITALS: BP 148/89
[2019-10-26] MEDS: HumaLOG INSULIN (NovoLOG) PER UNIT SC SCH ×5 (00:12→23:24)
[2019-10-26] MEDS: D5W/0.45% SODIUM CHLORIDE 1,000 ML IV SCH (00:12)
[2019-10-26] MEDS ORDERED: ceFAZolin SOD 2 GM in IV 1 EA IV SCH (01:00)
[2019-10-26 06:00] VITALS: BP 118/58
[2019-10-26 06:55] LABS: BASO # 0.1 10^3/uL (0.0-0.2); BASO % 1.2 % (0.0-1.0); EOS # 0.1 10^3/uL (0.0-0.5); EOS % 1.7 % (0.0-3.0); HEMATOCRIT 39.7 % (42.0-52.0); HEMOGLOBIN 11.8 g/dl (13.5-17.5); LYMPH # 0.7 10^3/uL (1.5-5.0); LYMPH % 10.4 % (24.0-44.0); MEAN CORPUSCULAR HEMOGLOBIN 23.2 pg (27.0-33.0); MEAN CORPUSCULAR HGB CONC 29.7 g/dl (32.0-36.5); MONO # 0.7 10^3/uL (0.0-0.8); MONO % 10.8 % (0.0-5.0); NEUTROPHILS % 75.3 % (36.0-66.0); PLATELET COUNT, AUTOMATED 373 10^3/uL (150-450); RED BLOOD COUNT 5.09 10^6/uL (4.30-6.10); WHITE BLOOD COUNT 6.6 10^3/uL (4.0-10.0)
[2019-10-26 07:23] LABS: BLOOD UREA NITROGEN 3 MG/DL (7-18); CALCIUM LEVEL 7.6 MG/DL (8.8-10.2); CARBON DIOXIDE LEVEL 25 MEQ/L (21-32); CHLORIDE LEVEL 110 MEQ/L (98-107); CREATININE FOR GFR 0.66 MG/DL (0.70-1.30); GLOMERULAR FILTRATION RATE > 60.0 (>42); GLUCOSE, FASTING 172 MG/DL (70-100); POTASSIUM SERUM 3.3 MEQ/L (3.5-5.1); SODIUM LEVEL 140 MEQ/L (136-145)
[2019-10-26] MEDS ORDERED: KCL 10MEQ/100ML SWI (KRUN) 10 MEQ in IV 1 EA IV ONE ×2 (08:00→09:00)
[2019-10-26] MEDS: LEVOTHYROXINE 100 MCG (0.1MG) VIAL IV SCH (08:22)
[2019-10-26] MEDS: PANTOPRAZOLE 40MG INJ (PROTONIX) (C9113) IV SCH (08:22)
[2019-10-26] MEDS: HEPARIN SOD (PORCINE) 5000 UNITS/ML VIAL SC SCH ×2 (09:22→21:26)
--- NOTE | 2019-10-26 09:42 | IPNPDOC ---
Date Seen The patient was seen on 10/26/19. Progress Note SUBJECTIVE: Patient was seen at bedside today s/p PEG placement. He has no complaints other than some slight abdominal discomfort. He denied any chest pain, SOB, difficulty moving his bowels or urinating. OBJECTIVE PHYSICAL EXAMINATION: VITAL SIGNS: Please see below. GENERAL: Patient is pleasant and cooperative, sitting up comfortably in bed, alert and oriented in no acute distress HEENT: Normocephalic, atraumatic. No scleral icterus. PERRLA. EOMI. no nasal discharge. No tracheal deviation. No obvious swollen lymph nodes CARDIOVASCULAR: Regular rate and rhythm. Normal S1 and S2. No murmurs, gallops or rubs noted RESPIRATORY: Symmetrical chest wall motion. Lungs clear to auscultation bilaterally. ABDOMINAL: PEG tube noted midline subxiphoid. No erythema noted around site. Normal bowel sounds in all 4 quadrants. Diffusely tympanic. No pain, tenderness, guarding or rigidity EXTREMITIES: 2/4 pulses noted throughout. No leg swelling or tenderness NEUROLOGICAL: A&O x3. Right sided deficits in Cranial Nerves V, VII and XII noted. 3/5 muscle strength noted in R Upper extremity. 5/5 muscle strength noted in all other extremities. PSYCHOLOGICAL: Mood and affect were appropriate LABORATORY DATA, MICROBIOLOGY: Please see below. Imagin10/19/2019. Chest x-ray: Mild cardiomegaly with pacemaker. Air density overlying heart. Hiatal hernia versus pneumopericardium. Increased density in right perihilar region. Infiltrate versus pleural plaquing. CT scanning recommended Chest CT: Right middle lobe and right upper lobe pneumonia. Patchy infiltrate seen in left upper lobe. Large areas of rounded atelectasis in lower lobes bilaterally distort the major fissure and simulate the radiographic findings of pneumomediastinum or pneumopericardium. Hiatal hernia seen. DVT prophylaxis ordered?: 5000 units subcutaneous heparin ASSESSMENT AND PLAN: This is a 74-year-old male with past medical history of left-sided CVA with right hemiparesis, oropharyngeal dysfunction, t hird-degree block with pacemaker, and insulin-dependent type 2 diabetes presenting with right-sided aspiration pneumonia, found to have infiltrates in the right middle and upper lobes; s/p PEG placement. PROBLEMS: #Aspiration pneumonia - Pt has been afebrile for greater than 48hrs. -Pt at 97% on room air today -WBC stable at 6.6 today -s/p PEG placement, currently receiving 45mLs/hr, will continue to increase rate by 10mls q2hrs. #Hypokalemia most likely 2/2 to malnutrition & NPO status -2 K runs ordered #Chronic CHF, likely diastolic -Pt has no signs of volume overload on exam. - echo 10/10: normal or near normal LV systolic function, inconclusive for evaluation of diastolic function due to underlying A. fib #Malnutrition: -PEG placed, see above. #Hypothyroidism -c/w IV levothyroxine #IDDM2 with diabetic neuropathy -Continue D5 fluids, hypoglycemic protocol in place -continue q6hr coverage -will reevaluate home regimen prior to d/c #CVA -residual spastic right hemiparesis noted on exam #PVD -hx of ulcers followed by Dr. 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, - s/p dual chamber PPM DISPOSITION: Pending tolerance of PEG tube feedings, possible return to [facility] tomorrow VS, I&O, 24H, [facility] Vital Signs/I&O Vital Signs Date Time Temp Pulse Resp B/P (MAP) Pulse Ox O2 Delivery O2 Flow Rate FiO2 10/26/19 06:00 98.4 81 18 118/58 (78) 97 10/25/19 22:00 Room Air 10/25/19 18:09 10 I&O- Last 24 Hours up to 6 AM 10/26/19 06:00 Intake Total 1706 ml Output Total 0 ml Balance 1706 ml Laboratory Data 24H LABS Laboratory Tests 2 10/25/19 12:27: Bedside Glucose (Misc Panel) 173H 10/25/19 14:13: Bedside Glucose (Misc Panel) 148H 10/25/19 18:45: Bedside Glucose (Misc Panel) 213H 10/26/19 00:01: Bedside Glucose (Misc Panel) 207H 10/26/19 05:59: Bedside Glucose (Misc Panel) 165H 10/26/19 06:38: Immature Granulocyte % (Auto) 0.6, Neutrophils (%) (Auto) 75.3H, Lymphocytes (%) (Auto) 10.4L, Monocytes (%) (Auto) 10.8H, Eosinophils (%) (Auto) 1.7, Basophils (%) (Auto) 1.2H, Neutrophils # (Auto) 5.0, Lymphocytes # (Auto) 0.7L, Monocytes # (Auto) 0.7, Eosinophils # (Auto) 0.1, Basophils # (Auto) 0.1, Nucleated Red Blood Cells % (auto) 0.0, Anion Gap 5L, Glomerular Filtration Rate > 60.0, Calcium Level 7.6L CBC/BMP Laboratory Tests 10/26/19 06:38 Microbiology Microbiology 10/19/19 Respiratory Virus Panel (PCR) (EMANUEL) - Final, Complete 10/19/19 Blood Culture - Final, Complete NO GROWTH AFTER 5 DAYS 10/19/19 Blood Culture - Final, Complete NO GROWTH AFTER 5 DAYS GME ATTESTATION GME ATTESTATION My faculty preceptor for this patient encounter was physically present during the encounter and was fully available. All aspects of the patient interview, examination, medical decision making process, and medical care plan development were reviewed and approved by the faculty preceptor. The faculty preceptor is aware and concurs with the plan as stated in the body of this note and will attest to such by his/her cosignature. ATTENDING NOTE Patient was seen and examined by me this morning with the residents. Agree with the above assessment and plan PITER ZUÑIGA-3 Oct 26, 2019 09:42 GENESIS SPANN D.O. Oct 26, 2019 11:37 PAPA GODFREY MD Oct 27, 2019 13:34
[2019-10-26 10:00] VITALS: BP 136/59
[2019-10-26 14:00] VITALS: BP 137/62
[2019-10-26] MEDS ORDERED: NORCO, ANEXSIA 5/325MG TABLET (HYDROcodone/ACETAMINOPHEN) PEG PRN (16:45)
[2019-10-26 18:00] VITALS: BP 148/67
--- NOTE | 2019-10-26 18:11 | IPN ---
DATE: 10/26/2019 HISTORY: The patient is now postoperative day number one from placement of a 24-[place] percutaneous endoscopic gastrostomy tube. At the time of insertion, he was also noted to have severe diffuse esophagitis with some changes in the distal esophagus that I thought were somewhat worrisome even for possible esophageal cancer. Biopsies were obtained and these are pending. Vital signs show that the patient has been afebrile since his procedure. His pulse remained up during the afternoon yesterday but has come down into the 60s and 80s this morning. His blood pressure is good. Intake and output show that yesterday he had 1700 in with a number of unmeasured voids and bowel movements. PHYSICAL EXAMINATION: The patient reports that he is having only a little discomfort around the site of the tube. Examination shows that the abdomen remains obese but he has bowel sounds present and the abdomen is soft and without undue tenderness. LABORATORY STUDIES: Show a white count of 7, hemoglobin of 12, hematocrit of 40 and a platelet count of 373. Chemistry profile shows a sodium of 140, potassium 3.3, chloride 110, CO2 of 25, BUN of 2, creatinine 0.66 and a glucose of 172. I note that the patient has been started on some tube feedings by the hospitalist service. IMPRESSION: The patient is doing very well now postoperative day number one from his percutaneous endoscopic gastrostomy (PEG) tube placement. RECOMMENDATIONS: I would recommend that followup on the biopsies take place appropriately. He certainly has severe esophagitis and this should be managed medically. This may be a factor in his problems with aspiration. MARY JANE
[2019-10-26 22:00] VITALS: BP 175/55
[2019-10-27 02:00] VITALS: BP 139/62
[2019-10-27 06:00] VITALS: BP 135/64
[2019-10-27] MEDS ORDERED: LEVOTHYROXINE 125MCG TABLET (0.125MG) PO SCH (06:00)
[2019-10-27] MEDS: HumaLOG INSULIN (NovoLOG) PER UNIT SC SCH (06:34)
[2019-10-27 08:37] LABS: HEMATOCRIT 37.9 % (42.0-52.0); HEMOGLOBIN 11.4 g/dl (13.5-17.5); MEAN CORPUSCULAR HEMOGLOBIN 23.3 pg (27.0-33.0); MEAN CORPUSCULAR HGB CONC 30.1 g/dl (32.0-36.5); MEAN CORPUSCULAR VOLUME 77.5 fl (80.0-96.0); PLATELET COUNT, AUTOMATED 359 10^3/uL (150-450); RED BLOOD COUNT 4.89 10^6/uL (4.30-6.10); WHITE BLOOD COUNT 6.1 10^3/uL (4.0-10.0)
[2019-10-27] MEDS ORDERED: LANSOPRAZOLE SUSPENSION 30 MG/10 ML ORAL SYRINGE (FIRST-LANSOPRAZOLE) GT SCH (09:00)
[2019-10-27] MEDS: HEPARIN SOD (PORCINE) 5000 UNITS/ML VIAL SC SCH (09:00)
[2019-10-27 09:02] LABS: BLOOD UREA NITROGEN 9 MG/DL (7-18); CALCIUM LEVEL 7.8 MG/DL (8.8-10.2); CARBON DIOXIDE LEVEL 29 MEQ/L (21-32); CHLORIDE LEVEL 110 MEQ/L (98-107); CREATININE FOR GFR 0.72 MG/DL (0.70-1.30); GLOMERULAR FILTRATION RATE > 60.0 (>42); GLUCOSE, FASTING 180 MG/DL (70-100); POTASSIUM SERUM 4.5 MEQ/L (3.5-5.1); SODIUM LEVEL 142 MEQ/L (136-145)
[2019-10-27 10:00] VITALS: BP 123/60
--- NOTE | 2019-10-27 10:46 | DS.PDOC ---
Discharge Summary General Date of Admission Oct 19, 2019 at 10:05 Date of Discharge Oct 27, 2019 Attending Physician: PAPA GODFREY MD Discharge Summary PROCEDURES PERFORMED DURING STAY: PEG tube placement. ADMITTING DIAGNOSES: 1. Multifocal pneumonia 2.Acute/Chronic Respiratory Failure 3.Hypocalcemia 4.Hypoglycemia 5. Hx of Aspiration 6. Hx of CVA w/ spastic R. Hemiparesis 7. Insulin Dependent DM 2 8. 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 Hypertension 10. CHF 11. BPH 12.Vitamin D Deficiency 13. Hypothyroidism DISCHARGE DIAGNOSES: 1. Aspiration Pneumonia (resolved) 2.Acute/Chronic Respiratory Failure (resolved) 3.Hypocalcemia (resolved) 4.Hypoglycemia (resolved) 5. Hx. of Aspiration 6. Hx of CVA w/ spastic R. Hemiparesis 7. Insulin Dependent DM 2 8. 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 Hypertension 10. CHF 11. BPH 12.Vitamin D Deficiency (resolved) 13. Hypothyroidism COMPLICATIONS/CHIEF COMPLAINT: Multilobar Lung Infiltrate. HISTORY OF PRESENT ILLNESS: 74-year-old male resident at [facility] with extensive past medical history sent to ED after being found in vomit. Patient was found to be hypoglycemic earlier, and treated with orange juice. Patient aware of vomiting this morning, denies any other medical complaints. Denies chest pain, shortness of breath, abdominal pain, nausea, diarrhea. In ED found to be febrile, with imaging showing multifocal infiltrates, suspicious for aspiration. Patient recently discharged for respiratory distress secondary to decompensated CHF and aspiration PNA. Patient is oriented to person and place, poor historian. HOSPITAL COURSE: Pt was admitted for aspiration pneumonia. He was made NPO and started on Antibiotics. He clinically improved. Multiple attempts at swallow studies and work with speech therapy were performed. Pt required PEG placement for ongoing nutrition and avoidance of further aspiration. Endoscopic evaluation found inflammation of esophageal mucosa, biopsies were taken and should be followed up outpatient. DISCHARGE MEDICATIONS: Please see below. ALLERGIES: Please see below. PHYSICAL EXAMINATION ON DISCHARGE: VITAL SIGNS: Please see below. GENERAL: Patient is pleasant and cooperative, sitting up comfortably in bed, alert and oriented in no acute distress HEENT: Normocephalic, atraumatic. No scleral icterus. PERRLA. EOMI. no nasal discharge. No tracheal deviation. No obvious swollen lymph nodes CARDIOVASCULAR: Regular rate and rhythm. Normal S1 and S2. No murmurs, gallops or rubs noted RESPIRATORY: Symmetrical chest wall motion. Lungs clear to auscultation bilaterally. ABDOMINAL: PEG tube noted midline subxiphoid. No erythema noted around site. Normal bowel sounds in all 4 quadrants. Diffusely tympanic. No pain, tenderness, guarding or rigidity EXTREMITIES: 2/4 pulses noted throughout. No leg swelling or tenderness NEUROLOGICAL: A&O x3. Right sided deficits in Cranial Nerves V, VII and XII noted. 3/5 muscle strength noted in R Upper extremity. 5/5 muscle strength noted in all other extremities. PSYCHOLOGICAL: Mood and affect were appropriate LABORATORY DATA: Please see below. IMAGIN10/19/2019. Chest x-ray: Mild cardiomegaly with pacemaker. Air density overlying heart. Hiatal hernia versus pneumopericardium. Increased density in right perihilar region. Infiltrate versus pleural plaquing. CT scanning recommended Chest CT: Right middle lobe and right upper lobe pneumonia. Patchy infiltrate seen in left upper lobe. Large areas of rounded atelectasis in lower lobes bilaterally distort the major fissure and simulate the radiographic findings of pneumomediastinum or pneumopericardium. Hiatal hernia seen. PROGNOSIS: Fair ACTIVITY: [As tolerated]. DIET: Consistent Carbohydrate via PEG Tube DISCHARGE PLAN: Continue Medications as prescribed. F/U with PCP within 7-10 days at [facility] F/U with PCP regarding biopsy results from Upper endoscopy Aspiration Precautions DISCHARGE CONDITION: [Stable]. TIME SPENT ON DISCHARGE: Greater than 30 minutes. Vital Signs/I&Os Vital Signs Date Time Temp Pulse Resp B/P (MAP) Pulse Ox O2 Delivery O2 Flow Rate FiO2 10/27/19 10:00 97.1 79 18 123/60 (81) 97 Room Air 10/25/19 18:09 10 I&O- Last 24 Hours up to 6 AM 10/27/19 06:00 Intake Total 2680 ml Output Total 0 ml Balance 2680 ml Laboratory Data Labs 24H Laboratory Tests 2 10/26/19 11:48: Bedside Glucose (Misc Panel) 186H 10/26/19 16:44: Bedside Glucose (Misc Panel) 178H 10/26/19 23:21: Bedside Glucose (Misc Panel) 164H 10/27/19 06:01: Bedside Glucose (Misc Panel) 188H 10/27/19 08:21: Nucleated Red Blood Cells % (auto) 0.0, Anion Gap 3L, Glomerular Filtration Rate > 60.0, Calcium Level 7.8L CBC/BMP Laboratory Tests 10/27/19 08:21 FSBS Laboratory Tests Test 10/26/19 11:48 10/26/19 16:44 10/26/19 23:21 10/27/19 06:01 Range/Units Bedside Glucose (Misc Panel) 186 178 164 188 83-110 MG/DL Microbiology Microbiology 10/19/19 Respiratory Virus Panel (PCR) (EMANUEL) - Final, Complete 10/19/19 Blood Culture - Final, Complete NO GROWTH AFTER 5 DAYS 10/19/19 Blood Culture - Final, Complete NO GROWTH AFTER 5 DAYS Discharge Medications Scheduled Aspirin (Aspirin) 325 Mg Tablet, 325 MG PO DAILY, (Reported) Carvedilol (Carvedilol) 6.25 Mg Tablet, 6.25 MG PO BID, (Reported) Furosemide (Lasix) 40 Mg Tablet, 40 MG PO BID, (Reported) 0800 AND 1400 Guaifenesin (Mucinex) 600 Mg Tab.er.12h, 600 MG PO BID, (Reported) Hyoscyamine Sulfate (Hyoscyamine Sulfate) 0.125 Mg Tab.rapdis, 0.125 MG PO Q8H, (Reported) Insulin Aspart Protamine/Aspar (Novolog Mix 70-30 Vial) 100 Unit/1 Ml Vial, 18 UNITS SC BID, (Reported) 0730 AND 1730 Levothyroxine Sodium (Synthroid) 125 Mcg Tablet, 125 MCG PO QAM, (Reported) Loratadine (Claritin) 10 Mg Capsule, 10 MG PO DAILY, (Reported) Metformin HCl (Metformin HCl) 500 Mg Tablet, 500 MG PO BID, (Reported) 0800 AND 1600 Polyethylene Glycol 3350 (Miralax) 119 Gm Powder, 17 GRAM PO DAILY, (Reported) Sennosides/Docusate Sodium (Senna-S Tablet) 1 Each Tablet, 2 TAB PO BID, (Reported) 0800/1600 Simvastatin (Simvastatin) 40 Mg Tablet, 40 MG PO QHS, (Reported) Tamsulosin HCl (Flomax) 0.4 Mg Capsule, 0.4 MG PO DAILY, (Reported) Scheduled PRN Acetaminophen (Acetaminophen) 325 Mg Tablet, 650 MG PO Q4H PRN for PAIN / FEVER, (Reported) Albuterol Sulfate (Albuterol Sulfate) 2.5 Mg/0.5 Ml Vial.neb, 1 VIAL INH Q4H PRN for SHORTNESS OF BREATH, (Reported) Bisacodyl (Dulcolax) 10 Mg Supp.rect, 10 MG FL DAILY PRN for CONSTIPATION, (Reported) Glucagon,Human Recombinant (Glucagon Emergency Kit) 1 Mg Vial, 1 MG IM ASDIRECTED PRN for LOW BLOOD SUGAR, (Reported) Magnesium Hydroxide (Milk of Magnesia) 400 Mg/5 Ml Oral.susp, 30 ML PO DAILY PRN for CONSTIPATION, (Reported) Sodium Phosphate,[place]-Dibasic (Enema Ready To Use) 133 Ml Enema, 1 [place] DAILY PRN for CONSTIPATION, (Reported) Allergies Coded Allergies: No Known Drug Allergies (Verified Allergy, Unknown, 10/08/19) GME ATTESTATION GME ATTESTATION My faculty preceptor for this patient encounter was physically present during the encounter and was fully available. All aspects of the patient interview, examination, medical decision making process, and medical care plan development were reviewed and approved by the faculty preceptor. The faculty preceptor is aware and concurs with the plan as stated in the body of this note and will attest to such by his/her cosignature. ATTENDING NOTE Patient was seen and examined by me this morning with the residents. Agree with the above assessment and plan PITER [id number] Oct 27, 2019 10:46 PAPA GODFREY MD Oct 27, 2019 13:38
--- NOTE | 2019-10-27 15:01 | RO ---
DATE OF PROCEDURE: 10/25/2019 PREOPERATIVE DIAGNOSIS: Aspiration pneumonia with disordered swallowing. POSTOPERATIVE DIAGNOSES: 1. Aspiration pneumonia secondary to disordered swallowing. 2. Severe esophagitis of the entire esophagus with areas worrisome for esophageal cancer. PROCEDURE PERFORMED: Esophagogastroduodenoscopy with biopsies of the distal esophagus and placement of a 24-[place]ian percutaneous endoscopic gastrostomy tube. SURGEON: Dr. Rea ANESTHESIA: Monitored anesthesia care. INDICATIONS FOR PROCEDURE: Patient is a 74-year-old man who has previously suffered a stroke. He had some swallowing difficulties following this. More recently he has had several episodes of aspiration pneumonia. He was most recently admitted on the 19 of October with bilateral pulmonary infiltrates. Swallowing study showed significant aspiration and speech therapy has recommended that he remained nothing by mouth. He is now for placement of a percutaneous endoscopic gastrostomy tube. OPERATIVE PROCEDURE: The patient was brought to the operating room and placed supine on the operating table. He was placed under sedation by anesthesia. A bite block was placed. The patient's abdomen was prepped with Betadine and draped to expose the entire upper abdomen. I inserted the endoscope into the oropharynx and advanced this into the esophagus. In the upper esophagus he was found to have some old bloody fluid which was aspirated. As the scope was advanced down the esophagus it was clear that he had extensive diffuse changes of inflammation throughout the esophagus. These seemed to be most pronounced in the distal third and down at the GE junction. There were friable areas. There were some more nodular areas in the distal esophagus. The scope was advanced through the GE junction which did not seem to be significantly narrowed. There was a small amount of brownish fluid consistent with old blood in the upper stomach but nothing distally. The scope was advanced through the stomach and down to the pylorus. The scope was advanced through the pylorus and into the first portion of the duodenum. The scope was not long enough to advance farther into the duodenum. Within the first portion of the duodenum the patient was noted to have several small ulcerations up to about 6 mm in size. These were fairly shallow and there was no evidence of any recent or ongoing bleeding. The pylorus distended normally. The stomach was thoroughly examined and there were no other masses or ulcerations seen. The scope was withdrawn into the distal esophagus and I obtained several bite biopsies from several areas in the distal several centimeters of the esophagus. The scope was then advanced back into the stomach. The light was used to transilluminate the anterior gastric wall and this was noted high in the epigastrium centrally. I handed the scope to the tech who held this in position. I reprepped the area overlying the area of transillumination. Local anesthesia was achieved with 1% Xylocaine and a styleted 18 gauge needle was inserted through a small skin incision made in this area. The guidewire was then inserted through the needle. This was grasped using the snare through the endoscope and the endoscope was then removed pulling the guidewire up the esophagus and out through the mouth. The 24-St Lucian percutaneous endoscopic gastrostomy tube was then inserted onto the guidewire and advanced down the esophagus and out through the anterior abdominal wall. As the tip of the catheter was delivered I removed the guidewire and this was discarded. The gastrostomy tube was carefully pulled down through the esophagus and out the anterior abdominal wall. This was advanced until the 2 cm valdemar was approximately at the skin surface where there appeared to be no significant tension on the tube at that point. The external retention disc was applied followed by the clamp. The tube was then cut to length and the infusion adapter was placed. One of zip ties was used to tighten the external retention disc to the tube. This site was dressed with Betadine ointment and a split gauze. I then reinserted the endoscope into the oropharynx and advanced this down the esophagus and into the stomach. The internal retention disc was seen sitting gently on the surface of the stomach. There was no bleeding or evidence of hematoma. The stomach was decompressed and the scope was then removed. The patient tolerated the procedure well without apparent complication. He was awakened in the operating room and transported to the recovery room in stable condition. MARY JANE
[2019-10-28] MEDS ORDERED: LEVOTHYROXINE 75MCG TABLET (0.075MG) PO SCH (06:00)
== END 2019-10-27 11:34 | DRG 871 ==
LOC: M ED 06:35 → M ED INP 10:05 → M ICU 10:56 → M PCU 10-22 00:08 → M MSPAV 10-22 16:55
PROVIDERS: ADMIT Internal Medicine; ATTEND Internal Medicine
PROC: 0DB Gastrointestinal System, Excision (ICD-10-PCS; 2019-10-25)
PROC: 0DH63UZ Insertion of Feeding Device into Stomach, Percutaneous Approach (ICD-10-PCS; principal; 2019-10-25 16:00)
DX: A41.9 Sepsis, unspecified organism (principal); J69.0 Pneumonitis due to inhalation of food and vomit; J96.21 Acute and chronic respiratory failure with hypoxia; I69.351 Hemiplegia and hemiparesis following cerebral infarction affecting right dominant side; I44.2 Atrioventricular block, complete; I50.32 Chronic diastolic (congestive) heart failure; E46 Unspecified protein-calorie malnutrition; I47.2 Ventricular tachycardia; E83.51 Hypocalcemia; E11.649 Type 2 diabetes mellitus with hypoglycemia without coma; I11.0 Hypertensive heart disease with heart failure; N40.0 Benign prostatic hyperplasia without lower urinary tract symptoms; E03.9 Hypothyroidism, unspecified; Z95.0 Presence of cardiac pacemaker; E53.8 Deficiency of other specified B group vitamins; E11.42 Type 2 diabetes mellitus with diabetic polyneuropathy; E78.5 Hyperlipidemia, unspecified; I73.9 Peripheral vascular disease, unspecified; R13.12 Dysphagia, oropharyngeal phase; Z79.82 Long term (current) use of aspirin; Z79.4 Long term (current) use of insulin; Z79.899 Other long term (current) drug therapy; E87.6 Hypokalemia; E83.42 Hypomagnesemia; I48.91 Unspecified atrial fibrillation; Z66 Do not resuscitate; E83.39 Other disorders of phosphorus metabolism

== ENCOUNTER 2019-11-05 07:06 | Emergency (ER) | payer MEDICARE, MEDICAID ==
[2019-11-05] MEDS ORDERED: NS 1,000 ML IV ONE ×2 (07:45→08:15)
[2019-11-05 07:52] LABS: VENOUS BASE EXCESS 10.2 (-2.0-2.0); VENOUS HCO3 36.6 MEQ/L (23.0-27.0); VENOUS PARTIAL PRESSURE CO2 55.9 mmHg (38.0-50.0); VENOUS PARTIAL PRESSURE O2 34.8 mmHg (30.0-50.0); VENOUS PH 7.434 UNITS (7.330-7.430); VENOUS TOTAL CO2 38.3 MEQ/L (24.0-28.0)
[2019-11-05 07:56] LABS: BASO # 0.2 10^3/uL (0.0-0.2); BASO % 0.7 % (0.0-1.0); HEMATOCRIT 48.3 % (42.0-52.0); HEMOGLOBIN 13.9 g/dl (13.5-17.5); LYMPH # 0.9 10^3/uL (1.5-5.0); LYMPH % 4.3 % (24.0-44.0); MEAN CORPUSCULAR HEMOGLOBIN 22.7 pg (27.0-33.0); MEAN CORPUSCULAR HGB CONC 28.8 g/dl (32.0-36.5); MEAN CORPUSCULAR VOLUME 79.1 fl (80.0-96.0); MONO % 10.5 % (0.0-5.0); NEUTROPHILS # 17.1 10^3/uL (1.5-8.5); NEUTROPHILS % 83.9 % (36.0-66.0); PLATELET COUNT, AUTOMATED 468 10^3/uL (150-450); RED BLOOD COUNT 6.11 10^6/uL (4.30-6.10); WHITE BLOOD COUNT 20.4 10^3/uL (4.0-10.0)
--- NOTE | 2019-11-05 08:00 | REP ---
Clinical: Cough and dyspnea. Comparison: 10/19/2019. Findings: Mediastinum and cardiac silhouette are stable. Lung rodriguez demonstrate chronic-appearing interstitial changes without focal consolidation, obvious effusion, or pneumothorax. Skeletal structures intact. Impression: No focal consolidation or effusion appreciated. Electronically Signed by Liborio Bustillo MD 11/05/2019 07:52 A
[2019-11-05 08:08] LABS: INR 1.2
[2019-11-05] MEDS ORDERED: VANCOMYCIN HCL 1,000 MG, VIAL MATE ADAPTER 1 EACH in D5W 250 ML IV ONE (08:15)
[2019-11-05] MEDS ORDERED: PIPERACILLIN/TAZOBACTAM SOD 4.5 GM in D5W MINI-BAG PLUS 50 ML IV ONE (08:15)
[2019-11-05] MEDS ORDERED: SENN8.8S5 EN (08:23)
[2019-11-05] MEDS ORDERED: MULTCAP EN (08:23)
[2019-11-05] MEDS ORDERED: INSUDET SC (08:23)
[2019-11-05 08:26] LABS: ALBUMIN 2.5 GM/DL (3.2-5.2); ALT/SGPT 30 U/L (12-78); BILIRUBIN,DIRECT 0.1 MG/DL (0.0-0.2); BILIRUBIN,TOTAL 0.4 MG/DL (0.2-1.0); BLOOD UREA NITROGEN 42 MG/DL (7-18); CALCIUM LEVEL 9.3 MG/DL (8.8-10.2); CARBON DIOXIDE LEVEL 34 MEQ/L (21-32); CHLORIDE LEVEL 99 MEQ/L (98-107); CK-MB VALUE MASS < 1.0 NG/ML (<3.6); CPK CREATINE PHOSPHOKINASE 33 U/L (39-308); CREATININE FOR GFR 1.16 MG/DL (0.70-1.30); GLOMERULAR FILTRATION RATE > 60.0 (>42); GLUCOSE, FASTING 318 MG/DL (70-100); MB/CK RELATIVE INDEX 3.03 (< OR =4); NT-PRO BNP 2605 PG/ML (<125); POTASSIUM SERUM 4.5 MEQ/L (3.5-5.1); SODIUM LEVEL 141 MEQ/L (136-145); THYROXINE (T4) 9.3 UG/DL (4.5-12.0); TOTAL PROTEIN 7.5 GM/DL (6.4-8.2); TROPONIN I 0.02 NG/ML (< 0.10)
[2019-11-05] MEDS ORDERED: NOVOINJ SC (08:27)
[2019-11-05] MEDS ORDERED: INSUH10VL SC ×2 (08:27→08:28)
[2019-11-05] MEDS ORDERED: ACETAMINOPHEN 325 MG/10.15 ML UDC PEG ONE (08:30)
[2019-11-05 08:32] LABS: MONO # 2.1 10^3/uL (0.0-0.8)
[2019-11-05] MEDS ORDERED: ISOVUE-370 76% 100ML VIAL (Q9967) As Ordered ONE (08:57)
[2019-11-05] MEDS ORDERED: TRANEXAMIC ACID 100 MG/ML 10ML VIAL NEB ONE (09:15)
--- NOTE | 2019-11-05 09:37 | REP ---
Clinical: Pneumonia. Hemoptysis. Technique: Axial contrast enhanced images from the thoracic inlet to the upper abdomen with coronal and sagittal re-formations as well as MIP re-formations using pulmonary embolus protocol. 100 ml Isovue 370 intravenous contrast material administered without complication. Comparison: 10/19/2019. Findings: Satisfactory enhancement of the pulmonary vasculature is achieved and no filling defects are identified to suggest pulmonary embolus. Thoracic aorta again demonstrates atherosclerotic changes without aneurysm or dissection. Atherosclerotic changes of the coronary arteries noted without cardiomegaly or pericardial effusion. Dual lead pacemaker in stable position. The esophagus demonstrates air fluid level at the thoracic inlet with subsequent distension to the gastroesophageal junction where a small hiatal hernia is appreciated. The lung rodriguez demonstrate bilateral lower lobe rounded atelectasis along with small pleural effusions and bibasilar opacities. Previously noted scattered infiltrates suggesting multifocal pneumonia are improved. No obvious axillary, hilar, or mediastinal adenopathy. Musculoskeletal structures demonstrate osteopenia and degenerative changes. Limited upper abdomen demonstrates normal bilateral adrenal glands. Impression: 1. No evidence for pulmonary embolus. 2. Lung rodriguez demonstrate improved aeration with decreased infiltrates as compared to the 10/19/2019. Into the evidence for small pleural effusions, ill-defined bibasilar atelectasis, and suspected chronic bilateral lower lobe rounded atelectasis. 3. Distended esophagus. Electronically Signed by Liborio Bustillo MD 11/05/2019 09:28 A
[2019-11-05 11:00] VITALS: BP 126/61
[2019-11-05 11:15] VITALS: BP 117/61
[2019-11-05 11:32] VITALS: BP 106/57
--- NOTE | 2019-11-06 15:26 | ECGEPIP ---
[facility] - ED Test Date: 2019-11-05 Pat Name: BENNIE NOLEN Department: Room: - Gender: Male Health Clinician: : [id number] Requested By: RADHA Iqbal Order Number: [id number] Reading MD: Beto Zurita Measurements Intervals [place] Rate: 107 P: 28 NH: 252 QRS: -69 QRSD: 160 T: 95 QT: 411 QTc: 551 Interpretive Statements ELECTRONIC VENTRICULAR PACEMAKER UNDERLYING ATRIAL FIBRILLATION Electronically Signed on 11-06-2019 15:26:27 EST by Beto Zurita
== END 2019-11-05 11:37 | disposition short-term general hospital (02) ==
LOC: EDBD 07:06 → M ED 07:06
DX: K92.2 Gastrointestinal hemorrhage, unspecified (principal); E11.9 Type 2 diabetes mellitus without complications; I11.0 Hypertensive heart disease with heart failure; I50.9 Heart failure, unspecified; E78.5 Hyperlipidemia, unspecified; Z79.899 Other long term (current) drug therapy; Z79.82 Long term (current) use of aspirin; Z79.4 Long term (current) use of insulin
CPT/HCPCS: 51702; 71045; 71275; 80048; 80076; 81001; 82550; 82553; 82803; 83605; 83880; 84436; 84443; 84484; 85025; 85610; 86850; 86900; 86901; 86920; 87040; 87486; 87581; 87633; 87798; 93005; 93041; 94640; 96361; 96365; 96367; 99285; J2543; J3370; P9016; Q9967

== ENCOUNTER → 2019-11-18 | Outpatient (REF) ==
[~2019-11-18] MED LIST changes: +INSUDET SC; +INSUH10VL SC; +MULTCAP EN; +NOVOINJ SC; +SENN8.8S5 EN
--- NOTE | 2019-11-18 17:44 | REP ---
RIGHT SHOULDER, TWO VIEWS: Two views of the right shoulder are performed. COMPARISON: 10/06/2014 Old humeral neck fracture is again seen, ununited, with sclerotic margin along the unfused fracture fragments. Moderately severe arthritic changes are seen at the glenohumeral joint. Large spur formation is seen of the inferior humeral head. There is adjacent linear soft-tissue calcification again seen unchanged. The findings are essentially unchanged compared to the prior study. Electronically Signed by Maurice Blum MD 11/19/2019 03:26 P
== END ==
LOC: SKLAB5 14:14
PROVIDERS: ATTEND Family Medicine
DX: M25.511 Pain in right shoulder (principal)